=== PATIENT | female | born 2000 | race Caucasian/White ===

== ENCOUNTER 2023-07-01 12:50 | Inpatient (IN) | payer OTHER, SELFPAY ==
[2023-07-01] VITALS (7 sets, daily range): BP systolic 117–137; BP diastolic 68–85; PULSE 59–114; RESP 16–20; TEMP 35.5–36.2; O2SAT 97–100; BMI 25.9
--- NOTE | ~2023-07-01 | XR_ITS ---
EXAMINATION: XR ERCP DATE: 07/02/2023 11:47 INDICATION: Gallstones TECHNIQUE: 3 fluoroscopic spot fluoroscopic images of the right upper quadrant were obtained during e ndoscopic retrograde cholangiopancreatography (ERCP) performed by Dr. Pete Jara. Radiologist wa s not present for the imaging or procedure. The amount of fluoroscopy time used during this procedure was 1.4 minutes. COMPARISON: None. FINDINGS: Endoscopic cannulation and retrograde contrast injection into the common bile duct which demonstrates some amorphous decreased attenuation the distal duct which could represent either sludge or small ga llstones. Subsequent images demonstrate a balloon sweeping the mid to distal common bile duct. IMPRESSION: 1. Balloon sweeping of what appears to be a small amount of sludge or gallstones in the distal common bile duct. Please refer to the ERCP procedure note for additional details. Reviewed, dictated and finalized at location A. IMPRESSION: 1. Balloon sweeping of what appears to be a small amount of sludge or gallstone s in the distal common bile duct. Please refer to the ERCP procedure note for a dditional details.
--- NOTE | ~2023-07-01 | XR_ITS ---
XR chest 2V DATE: 07/10/2023 10:26 INDICATION: Shortness of breath TECHNIQUE: PA and lateral views COMPARISON: 07/08/2023 portable AP chest FINDINGS: There are bibasilar infiltrates and/or atelectasis, left greater than right. The left costo phrenic angle is obscured. Mild left pleural effusion is not excluded. No apparent right pleural effu damian. No pneumothorax. Heart size appears normal. Mediastinal silhouettes appear normal. Visualized skeletal structures are unremarkable. IMPRESSION: Persistent prominent bibasilar infiltrate and/or atelectasis, left greater than right and probable mild left pleural effusion; little interval change since 07/08/2023 Reviewed, dictated and finalized at location A. IMPRESSION: Persistent prominent bibasilar infiltrate and/or atelectasis, left greater than right and probable mild left pleural effusion; little interval jennifer nge since 07/08/2023
--- NOTE | ~2023-07-01 | XR_ITS ---
EXAMINATION: XR chest 1V portable DATE: 07/08/2023 15:22 INDICATION: Shortness of breath. TECHNIQUE: A single frontal view of the chest was obtained. COMPARISON: Chest view 07/05/2023, 07/01/2023 FINDINGS: There is a moderate-sized left pleural effusion. There are airspace opacities in the mid an d lower lung zones with a basilar predominance. No pneumothorax. The heart size is normal. IMPRESSION: 1. Worsened moderate-sized left pleural effusion. 2. Stable airspace opacities in the mid and lower lung zones with a basilar predominance, consistent with atelectasis versus pneumonia. Reviewed, dictated and finalized at location E. IMPRESSION: 1. Worsened moderate-sized left pleural effusion. 2. Stable airspace opacities in the mid and lower lung zones with a basilar pre dominance, consistent with atelectasis versus pneumonia.
--- NOTE | ~2023-07-01 | XR_ITS ---
EXAMINATION: XR chest 1V portable INDICATION: Hypoxia TECHNIQUE: Portable AP chest at 0554 hours COMPARISON: 07/01/2023 FINDINGS: The lung volumes are low. There are airspace opacities of the lung bases, left greater than right. No pleural effusion or pneumothorax. The cardiomediastinal silhouette is normal. IMPRESSION: 1. Bibasilar airspace opacities, left greater than right, consistent with atelectasis versus pneumoni a. Reviewed, dictated and finalized at location A. IMPRESSION: 1. Bibasilar airspace opacities, left greater than right, consistent with atele ctasis versus pneumonia.
--- NOTE | ~2023-07-01 | XR_ITS ---
EXAMINATION: XR chest 1V portable DATE: 07/01/2023 14:36 INDICATION: Chest pain TECHNIQUE: frontal view of the chest was obtained. COMPARISON: None FINDINGS: The lungs are clear with no focal airspace opacities, pulmonary edema, pleural effusion or pneumothor ax. The cardiomediastinal silhouette is normal. Minimal thoracic levocurvature. IMPRESSION: 1. No acute cardiopulmonary disease. Reviewed, dictated and finalized at location A.
--- NOTE | ~2023-07-01 | US_ITS ---
EXAMINATION: US abdomen limited DATE: 07/07/2023 15:42 INDICATION: Acute cholecystitis TECHNIQUE: Multiple grayscale and Doppler ultrasound images of the gallbladder were obtained in prepa ration for a planned percutaneous cholecystostomy tube placement. Given the interval change since the prior study for reasons as will be detailed below the planned cholecystostomy tube placement was def erred. COMPARISON: Ultrasound dated 07/01/2023 and ERCP dated 07/02/2023 FINDINGS/IMPRESSION: There are some residual wall thickening within the gallbladder likely related to acute cholecystitis but also due to improvement in the prior distention of the gallbladder which previously measured appr oximately 3.8 cm in maximal diameter, currently 1.8 cm maximal diameter. There is also been significa nt decrease in amount of hypoechoic sludge in the dependent portion of the gallbladder. This likely d ue to resolution of prior obstruction of the common bile duct post ERCP and sweeping of likely obstru cting stone from the common bile duct with subsequent significant improvement in the condition of the patient including significant improvement in both the elevated liver enzymes and elevated white bloo d cell count. Following discussion with the patient and Dr. Guevara it was agreed to defer the percutan eous cholecystostomy tube placement at this time. Would reconsider cholecystostomy tube placement whitley uld there be reversal of the current ongoing clinical improvement. Reviewed, dictated and finalized at location A.
--- NOTE | ~2023-07-01 | CT_ITS ---
EXAMINATION: CT diagnostic chest wo con DATE: 07/10/2023 15:09 INDICATION: left effusion vs consolidation TECHNIQUE: Computed tomography (CT) of the chest was performed with 100 mL Omnipaque-350 intravenous contrast. Automated exposure control and iterative reconstruction technique were employed. The dose-l ength product was 180.55 mGy-cm. COMPARISON: X-ray chest, same date. FINDINGS: CHEST: Thoracic aorta: No significant dilation or calcification. Lung parenchyma and airways: Discoid atelectasis and linear atelectasis/scar in the right lower lobe. Segmental left lower lobe consolidation. The airways are clear. Thoracic inlet, axillae and chest wall: No thyroid or soft tissue mass. No axillary lymphadenopathy. Mediastinum: No mass or lymphadenopathy. Normal residual thymic tissue. Heart and pericardium: Normal heart size. Small volume pericardial fluid. Coronary artery calcifications: Absent. Pleura: Small volume left pleural fluid collection. Upper abdomen: Considerable fat stranding surrounding the pancreas. Thoracic bones: No acute osseous finding in the chest. IMPRESSION: Trace pericardial effusion. Small left pleural effusion. Left basilar segmental atelectasis/consolida tion. Peripancreatic inflammatory change, concerning for pancreatitis, recommend CT of the abdomen and pelv is with contrast for further evaluation. Reviewed, dictated and finalized at location K. IMPRESSION: Trace pericardial effusion. Small left pleural effusion. Left basilar segmental atelectasis/consolidation. Peripancreatic inflammatory change, concerning for pancreatitis, recommend CT o f the abdomen and pelvis with contrast for further evaluation.
--- NOTE | ~2023-07-01 | US_ITS ---
EXAMINATION: US abdomen limited DATE: 07/01/2023 16:03 INDICATION: Right upper quadrant pain TECHNIQUE: Multiple grayscale and Doppler ultrasound images of the abdomen were obtained. COMPARISON: None available FINDINGS: The pancreas demonstrates mildly increased echogenicity of unclear significance or etiology . The liver is normal with normal echogenicity and echotexture. No surface nodularity. Normal hepatop etal flow in the main portal vein. There are stones and sludge in the gallbladder. There is mild gall bladder wall thickening. There is a small amount of free fluid in the right upper quadrant. The dilat ed common bile duct measures 10 mm. There was no sonographic Ramírez sign. IMPRESSION: 1. Dilated common bile duct, sludge and stones in the gallbladder, and mild gallbladder wall thickeni ng, and free fluid in the right upper quadrant. Findings could reflect distal common bile duct obstru ction and/or acute cholecystitis. Reviewed, dictated and finalized at location L. IMPRESSION: 1. Dilated common bile duct, sludge and stones in the gallbladder, and mild gal lbladder wall thickening, and free fluid in the right upper quadrant. Findings could reflect distal common bile duct obstruction and/or acute cholecystitis.
[2023-07-01 13:42] LABS: Alanine Aminotransferase 391 U/L (6-35); Alkaline Phosphatase 133 U/L (38-126); Anion Gap 8 mmol/L (8-16); Aspartate Amino Transferase 288 U/L (14-36); Bilirubin,Total 4.2 mg/dL (0.2-1.3); Blood Urea Nitrogen 8 mg/dL (7-17); Calcium 8.6 mg/dL (8.4-10.2); Carbon Dioxide 25 mmol/L (22-30); Chloride 107 mmol/L (98-107); Estimated CRCL calculation 107 ml/min; Estimated Glomerular Filt Rate > 60; Glucose 113 mg/dL (65-110); Sodium 140 mmol/L (137-145)
--- NOTE | 2023-07-01 14:02 | ED.CHESTPAIN ---
HPI - Chest Pain General Chief Complaint: Abdominal Pain Stated Complaint: chest pain Time Seen by Provider: 07/01/23 13:11 Source: patient Limitations: no limitations History of Present Illness HPI narrative: Patient is a 22-year-old female present to the emergency department complaining of chest pain. Patient states the pain is in her upper abdomen and points to her epigastrium, notes that has been present since March and feels like a tightness, nonradiating, it was originally coming and going but has since become more constant today. Patient notes that the pain did seem to become more frequent and more painful on Wednesday of this week and then today at around 11:30 AM she was in class when the pain got much more worse and constant and she had an episode of nonbloody nonbilious emesis. Patient has not noticed anything making her pain better nor worse. Patient has not associated the pain with food consumption. Patient denies anyone having some symptoms around her. Patient denies fever, diarrhea, constipation, dysuria, hematuria, urinary frequency, urinary urgency, history of kidney stones, vaginal discharge, shortness of breath, cough, numbness, weakness, recent injuries, recent illness. Related Data Allergies Allergy/AdvReac Type Severity Reaction Status Date / Time No Known Allergies Allergy Verified 07/01/23 15:24 Review of Systems Review of Systems: A 10 system review of systems was completed on the patient and is negative except for what is stated in the HPI. Nursing and ancillary documentation was reviewed. [facility] Past Medical History Medical History No pertinent past medical history Surgical History Surgical History No pertinent past surgical history Social History Social History Smoking status: Never smoker Alcohol intake: never Substance use: never Occupation/Education: student Comments At time of signature, I have reviewed and agree with nursing past medical, surgical, social and family history unless otherwise noted. Please see the nursing chart for further information. There is no relevant family history pertinent to the presenting complaint. Exam Const: General: no acute distress Orientation/consciousness: patient oriented x3 HENMT: Head: normal to inspection Mouth: Yes moist mucous membranes Throat: posterior oropharynx normal Eyes: Conjunctivae: conjunctival abnormality bilateral conjunctival icterus Pupils: Equal, round and reactive pupils present EOM: EOMs intact bilaterally Resp: Effort & Inspection: normal respiratory effort, not labored and not tachypneic Auscultation: clear to auscultation bilaterally Cardio: Jugular venous distension: no JVD Rate: regular rate Rhythm: regular rhythm Heart sounds: no murmurs Peripheral pulses: Peripheral pulses 2+ throughout GI: GI Palp: Yes Soft to palpation, Yes Tenderness to palpation present (GI) (RUQ and epigastric, both are mild), No Guarding due to palpation present (GI), No Rigid due to palpation and No Rebound tenderness present Other: Positive hernandez's sign. No Mcburneys point tenderness to palpation. No palpable hernias. Back/Spine/Pelvis: Back: no CVA tenderness Skin: General skin exam: jaundice Rashes: no rashes Wounds: no wounds Neuro: General: patient oriented x3, moves all extremities, no meningeal signs and no focal motor deficits Extrem: General: no pedal edema Psych: Affect: normal affect Course Vital Signs Vital signs: Vital Signs Pulse Rate 64 07/01/23 13:00 Respiratory Rate 19 07/01/23 13:00 Blood Pressure 124/68 07/01/23 13:00 Pulse Oximetry 100 07/01/23 13:00 Temperature 97.1 F L 07/01/23 13:04 Pulse Rate 77 07/01/23 17:00 Respiratory Rate 20 07/01/23 17:00 Blood Pressure 133/85 07/01/23 17:00 Pulse
--- NOTE | 2023-07-01 14:03 | ECG_ITS ---
Measurements Intervals [place] Rate: 61 P: 46 LA: 107 QRS: 81 QRSD: 88 T: 46 QT: 417 QTc: 422 Interpretive Statements SINUS RHYTHM WITH SHORT LA INTERVAL NORMAL ECG NO PREVIOUS ECG AVAILABLE FOR COMPARISON Electronically Signed On 07-01-2023 14:39:51 CDT by Russell Mcdaniel M.D.
[2023-07-01 14:21] LABS: Basophils Percent Auto 0.2 % (0.2-1.2); Hematocrit 42.7 % (37.0-47.0); Hemoglobin 14.2 g/dL (12.0-15.0); Immature Granulocyte Absolute 0.09 K/mm3 (0.00-0.031); Immature Granulocyte Percent A 0.4 % (0-0.5); Lymphocytes Absolute Auto 1.36 K/mm3 (0.9-3.2); Lymphocytes Percent Auto 6.7 % (18.3-44.2); Mean Corpuscular HGB Conc 33.3 g/dl (32-36); Mean Corpuscular Hemoglobin 29.6 pg (26-34); Mean Corpuscular Volume 89.1 fl (80-100); Mean Platelet Volume 10.6 fl (7.4-10.4); Monocytes Absolute Auto 1.4 K/mm3 (0.1-0.6); Neutrophils Absolute Auto 17.5 K/mm3 (1.3-6.7); Neutrophils Percent Auto 85.7 % (45.5-73.1); Platelet Count Result 266 k/mm3 (150-375); Red Blood Count 4.79 M/mm3 (4.2-5.4); Red Cell Distribution Width 12.7 % (11.5-14.5); White Blood Count 20.4 K/mm3 (4.5-10.0)
[2023-07-01 14:31] LABS: Magnesium 1.9 mg/dL (1.6-2.3)
[2023-07-01 14:43] LABS: Appearance Urine Cloudy (Clear); Bacteria Urine None Seen /hpf; Bilirubin Urine 3+ (Negative); Blood Urine 3+ (Negative); Color Urine Dark Yellow (Yellow); Glucose Urine UA Negative (Negative); Ketones Urine Trace mg/dL (Negative); Leukocyte Esterase Ur Trace LEU/UL (Negative); Need Manual Microscopic Reviewed; Nitrate Urine Negative (Negative); Non Pathogenic Casts >20; Protein Urine 1+ mg/dL (Negative); Specific Grav Ur 1.019 (1.001-1.035); Squamous Epithelial Cell Urine Moderate /hpf (Few); Urobilinogen Urine 0.2 mg/dL (<2.0); WBC Urine 0-5 /hpf
[2023-07-01 14:44] LABS: Troponin I < 0.012 ng/mL (0.000-0.034)
[2023-07-01 14:45] LABS: Magnesium 1.9 mg/dL (1.6-2.3); Troponin I < 0.012 ng/mL (0.000-0.034)
[2023-07-01 14:55] LABS: Add Urine Microscopic? YES
[2023-07-01] MEDS: ONDANSETRON INJ 4 MG/2 ML VIAL IV PUSH ×2 (15:24→23:17)
[2023-07-01] MEDS: MORPHINE SULFATE (*CRX) 4 MG/ML INJ IV PUSH (15:24)
[2023-07-01 15:31] LABS: Lipase > 40000 U/L (23-300)
[2023-07-01 16:16] LABS: Acetaminophen < 10 ug/mL (10-30)
[2023-07-01 16:18] LABS: Prothrombin Time 13.6 Seconds (11.1-14.7)
[2023-07-01 16:19] LABS: Partial Thromboplastin Time 27.1 SECONDS (22.3-36.8)
--- NOTE | 2023-07-01 16:50 | PM.CNGS ---
Assessment and Plan Assessment and plan (1) Acute biliary pancreatitis: Code(s): K85.10 - Biliary acute pancreatitis without necrosis or infection Status: Acute Assessment and Plan: Patient presents with acute biliary pancreatitis. Right upper quadrant ultrasound shows a dilated common bile duct with gallstones and sludge noted with some mild gallbladder inflammation. Lipase greater than 40,000. LFTs are elevated with hyperbilirubinemia concerning for choledocholithiasis. Recommend to continue medical management with IV fluids, bowel rest, and IV analgesics. Also recommend GI consultation to evaluate for possible need for an ERCP. The patient will need an eventual interval cholecystectomy after further evaluation of the common duct stone and once her pancreatitis has been adequately treated. Repeat labs tomorrow morning. We will continue to follow along. (2) Choledocholithiasis with acute cholecystitis: Code(s): K80.42 - Calculus of bile duct with acute cholecystitis without obstruction Status: Acute Assessment and Plan: See plan above. (3) Transaminitis: Code(s): R74.01 - Elevation of levels of liver transaminase levels Status: Acute Assessment and Plan: LFTs elevated with a total bilirubin of 4.2. Recommend GI consultation. Possible common bile duct stone. Repeat labs tomorrow. Plan I have discussed the patient's case and plan of care with Dr. Stacy. Thank you for allowing us to see the patient in consultation and we will continue to follow along with you. History of Present Illness Consult details Consult date: 07/01/23 Reason for consult: other (Acute biliary pancreatitis, cholelithiasis with possible cholecystitis) Requesting physician: Krunal Landaverde DO Narrative: This is a 22-year-old woman who reports having 1-2 episodes of epigastric abdominal pain a month since March of 2023. These were mild episodes and she has not been seen for this issue. She began to have more frequent epigastric and left upper quadrant abdominal pain 4 days ago. She cannot recall if the pain was associated with eating, but the pain would wax and wane. Her pain got better yesterday and she went to bed with no pain. She woke up this morning feeling in her normal state of health and had frosted flakes cereal with almond milk. Around 11:00 a.m., her abdominal pain returned and was more severe. Again in the epigastric area radiating up to her chest and to the left upper quadrant. She felt her pain was more focally in the left upper quadrant with this episode. She began having nausea and multiple episodes of vomiting. She was vomiting in the bathroom at school in some classmates found her and brought her into the ER for evaluation. Labs showed a white blood cell count [id number], lipase greater than 40,000, total bilirubin 4.2, AST 288, ALT 391, alk-phos 133, negative troponin x2. Chest x-ray was negative. Right upper quadrant abdominal ultrasound showed a dilated common duct of 10 mm, sludge in stones in the gallbladder, and mild gallbladder wall thickening and free fluid in the right upper quadrant. Could suggest common bile duct obstruction and/or acute cholecystitis. Our service was contacted by the ED physician. She is now seen in the ER. She is still having a significant amount of left upper quadrant abdominal pain at this time. With further questioning, she does endorse acholic stools and dark orange colored urine for the past 2-3 days. She denies alcohol use. She denies a history of pancreatitis.. No previous abdominal surgeries. Review of Systems Review of Systems: All systems reviewed & are unremarkable except as noted in HPI and below Constitutional: Constitutional: Reports no additional constitutional complaints, Denies chills, Denies fatigue and Denies fever(s) Eyes: Eyes: Reports no additional eye complaints ENT: Reports system reviewed and no additional complaints, except as documented
[2023-07-01 17:37] LABS: Hepatitis B Surface Antigen Negative (Negative)
[2023-07-01 17:42] LABS: HAV RESULT Negative (Negative); Hepatitis B Core IgM Result Negative (Negative)
[2023-07-01 17:54] LABS: Hepatitis C Virus Antibody Negative (Negative)
[2023-07-01] MEDS: SODIUM CHLORIDE 0.9% IV 1,000 ML 125 ML IV CONT (19:27)
--- NOTE | 2023-07-01 20:04 | PM.IMHP ---
H&P: HPI History of Present Illness Date/Time: 07/01/23 20:04 Chief Complaint: Abdominal pain, nausea vomiting Narrative: Patient is a 22-year-old female with no past medical history presents to the ED complaints of nausea/vomiting/abdominal pain for last 5 days. Patient has no history of symptoms this severe before. No family history abdominal pathologies. Patient has not had gallbladder attacks in the past. She denies any specific exacerbating or alleviating factors. In the ED: Patient on his leukocytosis 20,000, stable vitals, Tbili 4.2 elevated, LFTs elevated AST 288, ALT 391, alk phos 133, lipase >40k. Patient abdominal ultrasound shows dilated common bile duct and sludge and stones. With findings of acute cholecystitis and concern for common bile duct obstruction patient will be admitted for further evaluation and treatment. General surgeon consult for cholecystectomy. GI consult for possible ERCP. Patient given Rocephin and Flagyl, started IVF. Review of Systems Review of Systems: Constitutional: No Fever, No Chills, No Night Sweats, No Fatigue, No Malaise ENT/Mouth: No Hearing Changes, No Ear Pain, No Nasal Congestion, No Sinus Pain, No Hoarseness, No sore throat, No Rhinorrhea, No Swallowing Difficulty Eyes: No Eye Pain, No Redness, No Vision Changes Cardiovascular: No Chest Pain, No Palpitations, No Dyspnea on Exertion, No Orthopnea, No Claudication, No Edema Respiratory: No Cough, No Sputum, No Wheezing, No Shortness of Breath Gastrointestinal: Endorses nausea and vomiting and abdominal pain prominently in epigastric region Genitourinary: No Dysuria, No Urinary Frequency, No Hematuria, No Urinary Incontinence, No Urgency Musculoskeletal: No Arthralgias, No Myalgias, No Joint Swelling, No Joint Stiffness, No Back Pain Skin: No Skin Lesions, No Pruritis, No Hair Changes Neuro: No Weakness, No Numbness, No Paresthesias, No Loss of Consciousness, No Syncope, No Dizziness, No Headache Psych: No Anxiety/Panic, No Depression, No Insomnia Heme: No Bruising, No Bleeding Lymph: No Adenopathy Endocrine: No Polyuria, No Polydipsia, No Temperature Intolerance PMFSH Past Medical History Medical History No pertinent past medical history Surgical History Surgical History No pertinent past surgical history Social History Social History Smoking status: Never smoker Alcohol intake: never Substance use: never Lack of Transportation: No Lack of Food: Never True Current Housing: I Have Housing Concerned About Future Housing: No Difficulty Paying Gas/Electric Bills: No Difficulty Paying for Meds: No Currently Unemployed: No Education: Associate Degree Difficulty w/ Childcare or Family Care: No Occupation/Education: student Spiritual care concerns: No Meds Home Medications and Allergies Home Medications Medication Instructions Recorded Confirmed Type No Home Medications 07/01/23 07/01/23 History Allergies Allergy/AdvReac Type Severity Reaction Status Date / Time lactose AdvReac Gastrointestinal Verified 07/01/23 18:54 Upset Vital Signs Vital Signs - 24 hr 07/01/23 13:04 07/01/23 17:00 07/01/23 16:00 Temperature 36.2 C L Pulse Rate 78 77 59 L Respiratory Rate 16 20 20 Blood Pressure 129/68 133/85 127/75 Pulse Oximetry 100 97 99 Oxygen Delivery Room Air 07/01/23 15:15 07/01/23 14:00 07/01/23 13:00 Temperature Pulse Rate 73 74 64 Respiratory Rate 16 16 19 Blood Pressure 127/80 137/72 124/68 Pulse Oximetry 98 100 100 Oxygen Delivery Exam Narrative: - GENERAL: Pleasant woman in no acute distress. Well-nourished. - EYES: EOMI. Anicteric. - HENT: Moist mucous membranes. - LUNGS: Clear to auscultation bilaterally, no wheezing, rhonchi, or rales. - CARDIOVA
[2023-07-01] MEDS: HYDROmorphone HCL INJ (*CRX) 1 MG/ML SYR 0.5 MG IV PUSH ×2 (20:28→23:45)
[2023-07-01] MEDS: cefTRIAXone 2 GM/NS 100 ML 2 GM/100 ML BAG IVPB (20:31)
[2023-07-01] MEDS: metroNIDAZOLE 500 MG/ISO 100ML 500 MG/100 ML BAG 100 MG IVPB (21:53)
[2023-07-02] VITALS (17 sets, daily range): BP systolic 97–142; BP diastolic 52–95; PULSE 113–174; RESP 16–31; TEMP 35.5–36.8; O2SAT 95–100
[2023-07-02] MEDS: HYDROmorphone HCL INJ (*CRX) 1 MG/ML SYR 0.5 MG IV PUSH ×2 (03:20→06:12)
[2023-07-02] MEDS: metroNIDAZOLE 500 MG/ISO 100ML 500 MG/100 ML BAG 100 MG IVPB ×4 (03:20→21:38)
--- NOTE | 2023-07-02 05:57 | ECG_ITS ---
Measurements Intervals [place] Rate: 133 P: 52 [place]: 108 QRS: 81 QRSD: 89 T: 19 QT: 288 QTc: 429 Interpretive Statements SINUS TACHYCARDIA WITH SHORT TX INTERVAL ABNORMAL ECG COMPARED TO ECG 07/01/2023 14:30:28 SINUS TACHYCARDIA NOW PRESENT Electronically Signed On 07-02-2023 6:54:16 CDT by Uzair Estevez D.O.
[2023-07-02] MEDS: SODIUM CHLORIDE 0.9% IV 1,000 ML 125 ML IV CONT (06:12)
[2023-07-02 06:33] LABS: Hematocrit 52.7 % (37.0-47.0); Mean Corpuscular HGB Conc 34.2 g/dl (32-36); Mean Corpuscular Hemoglobin 29.5 pg (26-34); Mean Corpuscular Volume 86.4 fl (80-100); Mean Platelet Volume 10.8 fl (7.4-10.4); Platelet Count Result 344 k/mm3 (150-375); White Blood Count 23.6 K/mm3 (4.5-10.0)
[2023-07-02 06:50] LABS: Albumin Level 3.7 g/dL (3.5-5.1); Anion Gap 13 mmol/L (8-16); Aspartate Amino Transferase 194 U/L (14-36); Blood Urea Nitrogen 18 mg/dL (7-17); Calcium 8.8 mg/dL (8.4-10.2); Carbon Dioxide 16 mmol/L (22-30); Chloride 108 mmol/L (98-107); Estimated CRCL calculation 77 ml/min; Estimated Glomerular Filt Rate > 60; Glucose 131 mg/dL (65-110); Magnesium 1.8 mg/dL (1.6-2.3); Potassium 5.2 mmol/L (3.4-5.0); Sodium 137 mmol/L (137-145)
[2023-07-02 06:51] LABS: Alkaline Phosphatase 140 U/L (38-126)
[2023-07-02 06:53] LABS: Alanine Aminotransferase 333 U/L (6-35)
[2023-07-02 07:51] LABS: Band Neutrophils Percent 19 % (0-6); Lymphocytes Absolute Manual 0.47 K/mm3 (1.1-4.5); Monocytes Absolute Manual 0.94 K/mm3 (0.1-0.90); Monocytes Percent Manual 4 % (3-9); Neutrophils Absolute Manual 22.18 K/mm3 (1.7-7.2); Neutrophils Percent Manual 75 % (46-73); Platelet Estimate Adequate (Adequate); Schistocytes None Seen (NORMAL); Total Cells Counted 100
[2023-07-02 08:03] LABS: Lipase 9919 U/L (23-300)
[2023-07-02] MEDS: SODIUM CHLORIDE 0.9% IV 1,000 ML 250 ML IV CONT ×2 (08:53→13:46)
--- NOTE | 2023-07-02 09:29 | PM.PNGS ---
Progress Note: A&P Assessment and Plan (1) Acute biliary pancreatitis: Code(s): K85.10 - Biliary acute pancreatitis without necrosis or infection Status: Acute Assessment and Plan: Severe pancreatitis with patient still having considerable amounts of pain. She has evidence of biliary obstruction with abnormal of TS and bilirubin of 4. Will change her pain medication for better relief. Continue normal saline fluid resuscitation. Will eventually need cholecystectomy. (2) Cholelithiasis with choledocholithiasis: Code(s): K80.70 - Calculus of gallbladder and bile duct without cholecystitis without obstruction Status: Acute Assessment and Plan: Dr. Freemna will be seeing patient for GI consultation. Seems likely patient may have a common bile duct stone as her lipase and pain are persistent and she does have an elevated bilirubin and elevated LFTs. Keep NPO for possible ERCP today. Patient will eventually need cholecystectomy as this is the source of the gallstones. Do not see evidence of cholecystitis. Subjective Subjective Date/Time Seen: 07/02/23 09:29 Patient reports: still having pain (Not as bad as yesterday but still very uncomfortable), no flatus, no bowel movement and afebrile Review of Systems Review of Systems: All systems reviewed & are unremarkable except as noted in HPI and below (HPI and those items noted below) Constitutional: Constitutional: Denies chills and Denies fever(s) Cardiovascular: Cardiovascular: Denies chest pain, Denies diaphoresis, Denies dyspnea and Denies paroxysmal nocturnal dyspnea Respiratory: Respiratory: Denies chest congestion, Denies cough and Denies dyspnea Integumentary/Breasts: Skin/Breast: Denies lesions and Denies rash Exam Const: General: cooperative, no acute distress, alert, awake, uncomfortable and well nourished Nutritional Appearance: average body habitus Orientation/consciousness: patient oriented x3 GI: Inspection: normal to inspection, non-distended, scaphoid, no scars and other (Umbilical piercing) GI Palp: Yes abdominal tenderness (Diffusely tender with guarding), Yes Firmness to palpation present (GI), Yes Guarding due to palpation present (GI), No Hernia present and No Palpable mass present Auscultation: absent bowel sounds Neuro: General: patient oriented x3 and no focal motor deficits Extrem: General: no calf tenderness and no edema Psych: Affect: normal affect Insight: Good insight present (Psych) Judgement: Good judgement present (Psych) Objective Data Vital Signs Vital Signs: Vital Signs - 24 hr 07/01/23 13:04 07/01/23 17:00 07/01/23 16:00 Temperature 36.2 C L Pulse Rate 78 77 59 L Respiratory Rate 16 20 20 Blood Pressure 129/68 133/85 127/75 Pulse Oximetry 100 97 99 Oxygen Delivery Room Air 07/01/23 15:15 07/01/23 14:00 07/01/23 13:00 Temperature Pulse Rate 73 74 64 Respiratory Rate 16 16 19 Blood Pressure 127/80 137/72 124/68 Pulse Oximetry 98 100 100 Oxygen Delivery 07/01/23 21:00 07/02/23 06:00 07/02/23 08:00 Temperature 35.5 C L 35.5 C L Pulse Rate 114 H 134 H Respiratory Rate 16 18 Blood Pressure 117/76 114/71 Pulse Oximetry 98 97 Oxygen Delivery Room Air 07/02/23 08:41 Temperature Pulse Rate 154 H Respiratory Rate Blood Pressure Pulse Oximetry 95 Oxygen Delivery Room Air Intake/Output Intake/Output: Intake & Output 06/29/23 06/30/23 07/01/23 07/02/23 23:59 23:59 23:59 23:59 Intake Total 200 2100 Balance 200 2100 Meds/Results Medications: Active Medications Generic Name Dose Route Start Last Admin Trade Name Freq PRN Reason Stop Dose Admin Hydromorphone HCl 0.5 mg 07/01/23 16:48 07/02/23 03:20 Hydromorphone Hcl Inj (*Crx) 1 Mg/Ml Syr IV PUSH 0.5 mg Q4H PRN Administration Pain Rated 7-10 Sodium Chloride 1,000 mls @ 100 mls/hr 07/01/23 16:50 07/02/23 08:53 Normal Saline Iv IV CONT 250 mls/hr .Q10H SACHI
[2023-07-02] MEDS: fentaNYL CITRATE INJ (*CRX) 100 MCG/2 ML VIAL 50 MCG IV PUSH (10:12)
--- NOTE | 2023-07-02 10:19 | PM.IMPN ---
Progress Note: A&P Assessment and Plan (1) Acute biliary pancreatitis: Code(s): K85.10 - Biliary acute pancreatitis without necrosis or infection Status: Acute Assessment and Plan: Keep NPO -maintenance IV fluids while NPO -pain control: P.r.n. Dilaudid -antiemetic Zofran (2) Choledocholithiasis with acute cholecystitis: Code(s): K80.42 - Calculus of bile duct with acute cholecystitis without obstruction Status: Deleted Assessment and Plan: -elevated LFTs concerning biliary obstruction, elevated lipase concerning for pancreatic obstruction -GI consult: Dr. Freeman for ERCP with findings concerning for choledocholithiasis -general surgery consult: For cholecystectomy considering acute cholecystitis -antibiotics: Continue Rocephin, Flagyl Subjective Date/time seen: 07/02/23 10:19 Interval history: Reports significant abdominal pain Review of Systems Review of Systems: Constitutional: No Fever, No Chills, No Night Sweats, No Fatigue, No Malaise ENT/Mouth: No Hearing Changes, No Ear Pain, No Nasal Congestion, No Sinus Pain, No Hoarseness, No sore throat, No Rhinorrhea, No Swallowing Difficulty Eyes: No Eye Pain, No Redness, No Vision Changes Cardiovascular: No Chest Pain, No Palpitations, No Dyspnea on Exertion, No Orthopnea, No Claudication, No Edema Respiratory: No Cough, No Sputum, No Wheezing, No Shortness of Breath Gastrointestinal: Endorses nausea and vomiting and abdominal pain prominently in epigastric region Genitourinary: No Dysuria, No Urinary Frequency, No Hematuria, No Urinary Incontinence, No Urgency Musculoskeletal: No Arthralgias, No Myalgias, No Joint Swelling, No Joint Stiffness, No Back Pain Skin: No Skin Lesions, No Pruritis, No Hair Changes Neuro: No Weakness, No Numbness, No Paresthesias, No Loss of Consciousness, No Syncope, No Dizziness, No Headache Psych: No Anxiety/Panic, No Depression, No Insomnia Heme: No Bruising, No Bleeding Lymph: No Adenopathy Endocrine: No Polyuria, No Polydipsia, No Temperature Intolerance Exam Narrative: - GENERAL: Pleasant woman in no acute distress. Well-nourished. - EYES: EOMI. Anicteric. - HENT: Moist mucous membranes. - LUNGS: Clear to auscultation bilaterally, no wheezing, rhonchi, or rales. - CARDIOVASCULAR: Regular rate and rhythm. No murmur. No JVD. - ABDOMEN: Soft, non-tender and non-distended. No palpable masses. - EXTREMITIES: No edema. Peripheral pulses 2+. Non-tender. - NEUROLOGIC: No focal neurological deficits. CN II-XII grossly intact. - PSYCHIATRIC: Awake, Alert and oriented x 3. Appropriate mood and affect. - SKIN: No rashes or lesions. Warm. - LYMPH: No cervical lymphadenopathy. Objective Data Vital Signs Vital Signs: Vital Signs - 24 hr 07/01/23 13:04 07/01/23 17:00 07/01/23 16:00 Temperature 97.1 F L Pulse Rate 78 77 59 L Respiratory Rate 16 20 20 Blood Pressure 129/68 133/85 127/75 Pulse Oximetry 100 97 99 Oxygen Delivery Room Air 07/01/23 15:15 07/01/23 14:00 07/01/23 13:00 Temperature Pulse Rate 73 74 64 Respiratory Rate 16 16 19 Blood Pressure 127/80 137/72 124/68 Pulse Oximetry 98 100 100 Oxygen Delivery 07/01/23 21:00 07/02/23 06:00 07/02/23 08:00 Temperature 96 F L 96 F L Pulse Rate 114 H 134 H Respiratory Rate 16 18 Blood Pressure 117/76 114/71 Pulse Oximetry 98 97 Oxygen Delivery Room Air 07/02/23 08:41 Temperature Pulse Rate 154 H Respiratory Rate Blood Pressure Pulse Oximetry 95 Oxygen Delivery Room Air Intake/Output Intake/Output: Intake & Output 06/29/23 06/30/23 07/01/23 07/02/23 23:59 23:59 23:59 23:59 Intake Total 200 / 200 2099 Balance 200 / 200 2099 Meds/Results Medications: Active Medications Generic Name Dose Route Start Last Admin Trade Name Freq PRN Reason Stop Dose Admin Sodium Chloride 1,000 mls @ 100 mls/hr 07/01/23 16:50 07/02/23 08:53 Normal Saline Iv IV CONT 250 m
[2023-07-02] MEDS: LACTATED RINGERS 1,000 ML 150 ML IV CONT ×2 (10:27→11:33)
--- NOTE | 2023-07-02 10:58 | WPDANESEPPF ---
Anes - Initial Pre Proc Eval Procedure: Operation Date: 07/02/23 11:30 Proposed Procedures p Endoscopic Retro Cholangiopancreatogram - Juwan Walsh MD Date/Time: 07/02/23 10:58 Surgeon: Gerson Clarke MD Pre Op Diagnosis: Choledocholithiasis Patient Data Age: 22 Gender: F Height: 1.7 m Weight: 75 kg Last Vital Signs Temp 96.6 F L 07/02/23 10:05 Pulse 155 H 07/02/23 10:05 Resp 18 07/02/23 10:05 BP 97/60 L 07/02/23 10:05 Pulse Ox 98 07/02/23 10:05 O2 Del Method Room Air 07/02/23 10:05 Allergies Allergy/AdvReac Type Severity Reaction Status Date / Time lactose AdvReac Gastrointestinal Verified 07/02/23 10:14 Upset Home Medications Medication Instructions Recorded Confirmed Type No Home Medications 07/01/23 07/01/23 History Laboratory Tests 07/01/23 07/01/23 07/01/23 13:24 14:12 14:20 WBC 20.4 H K/mm3 (4.5-10.0) RBC 4.79 M/mm3 (4.2-5.4) Hgb 14.2 g/dL (12.0-15.0) Hct 42.7 % (37.0-47.0) MCV 89.1 fl (80-100) MCH 29.6 pg (26-34) MCHC 33.3 g/dl (32-36) RDW 12.7 % (11.5-14.5) Plt Count 266 k/mm3 (150-375) MPV 10.6 H fl (7.4-10.4) Immature Gran % (Auto) 0.4 % (0-0.5) Neut % (Auto) 85.7 H % (45.5-73.1) Lymph % (Auto) 6.7 L % (18.3-44.2) [place] % (Auto) 7.0 % (2.6-8.5) Eos % (Auto) 0.0 % (0-4.4) Baso % (Auto) 0.2 % (0.2-1.2) Lymph # (Auto) 1.36 K/mm3 (0.9-3.2) [place] # (Auto) 1.4 H K/mm3 (0.1-0.6) Eos # (Auto) 0.0 K/mm3 (0-0.3) Baso # (Auto) 0.0 K/mm3 (0.0-0.1) Abs Immat Gran (auto) 0.09 H K/mm3 (0.00-0.031) Absolute Neuts (auto) 17.5 H K/mm3 (1.3-6.7) Absolute Nucleated RBC 0.0 K/mm3 (0.0-0.012) Total Counted Neutrophils % (Manual) Band Neutrophils % Lymphocytes % (Manual) Monocytes % (Manual) Nucleated RBC % 0.0 % (0.0-0.2) Abs Neuts (Manual) Abs Lymphs (Manual) Abs Monocytes (Manual) Platelet Estimate Schistocytes PT INR APTT Sodium 140 mmol/L (137-145) Potassium 4.0 mmol/L (3.4-5.0) Chloride 107 mmol/L (98-107) Carbon Dioxide 25 mmol/L (22-30) Anion Gap 8 mmol/L (8-16) BUN 8 mg/dL (7-17) Creatinine 0.70 mg/dL (0.7-1.0) Estim Creat Clear Calc 107 ml/min Estimated GFR > 60 (59 - ) Glucose 113 H mg/dL (65-110) Calcium 8.6 mg/dL (8.4-10.2) Magnesium 1.9 mg/dL 1.9 mg/dL (1.6-2.3) (1.6-2.3) Total Bilirubin 4.2 H mg/dL (0.2-1.3) AST 288 H U/L (14-36) ALT 391 H U/L (6-35) Alkaline Phosphatase 133 H U/L (38-126) Troponin I < 0.012 ng/mL < 0.012 ng/mL (0.000-0.034) (0.000-0.034) Total Protein 7.0 g/dL (6.3-8.2) Albumin 4.0 g/dL (3.5-5.1) Lipase > 94617 H U/L (23-300) Urine Color Dark yellow (Yellow) Urine Appearance Cloudy H (Clear) Urine pH 5.0 (5.0-9.0) Ur Specific [place] 1.019 (1.001-1.035) Urine Protein 1+ H mg/dL (Negative) Urine Glucose (UA) Negative mg/dL (Negative) Urine Ketones Trace H mg/dL (Negative) Ur Blood (Man) 3+ H (Negative) Urine Nitrate Negative (Negative) Urine Bilirubin 3+ H (Negative) Urine Urobilinogen 0.2 mg/dL (<2.0) Add Ur Microanalysis Reviewed Leukocyte Esterase Rfl Trace H FAUSTINO/UL (Negative) Urine RBC 11-20 H /hpf (0-2) Urine WBC 0-5 /hpf Ur Squamous Epith Cells Moderate /hpf
--- NOTE | 2023-07-02 11:05 | WPDGICN ---
Assessment and Plan Assessment and plan (1) Acute biliary pancreatitis: Code(s): K85.10 - Biliary acute pancreatitis without necrosis or infection Status: Acute Assessment and Plan: here with pancreatitis, noted dilated bile duct 10mm with cholecystitis, she is quite symptomatic and also pancreatitis, tachycardic, hemoconcentrated and worsening leukocytosis- meets criteria for SIRS started on abx will proceed with urgent ERCP to assess biliary system ? sludge, stones surgery also on board, will need lap janet (2) Cholelithiasis with choledocholithiasis: Code(s): K80.70 - Calculus of gallbladder and bile duct without cholecystitis without obstruction Status: Acute Assessment and Plan: antibiotics, ercp now (3) SIRS (systemic inflammatory response syndrome): Code(s): R65.10 - Systemic inflammatory response syndrome (SIRS) of non-infectious origin without acute organ dysfunction Status: Acute Assessment and Plan: on abx and medical support (4) Elevated liver enzymes: Code(s): R74.8 - Abnormal levels of other serum enzymes Status: Acute Assessment and Plan: biliary related, abx surgery on board monitor (5) Leukocytosis: Code(s): D72.829 - Elevated white blood cell count, unspecified Status: Inactive Assessment and Plan: abx monitor (6) Abdominal pain: Code(s): R10.9 - Unspecified abdominal pain Status: Inactive (7) Nausea and vomiting in adult: Code(s): R11.2 - Nausea with vomiting, unspecified Status: Acute Assessment and Plan: npo (8) Dehydration: Code(s): E86.0 - Dehydration Status: Acute GI Consult Note Consult date/time: 07/02/23 11:05 Reason for consult: cholecystitis, elevated liver enzymes, abdominal pain HPI: Juanita Sierra is a 22 year old female with no major medical problems who came to hospital yesterday with severe upper abdominal pain. She has been having 1-2 episodes of epigastric abdominal pain a month since March of 2023, about 4 days ago more frequent epigastric and right upper quadrant abdominal pain but yesterday more severe, also nausea and vomiting. She never had pancreatitis, denies alcohol use.? Labs showed a white blood cell count 00087, lipase greater than 40,000, total bilirubin 4.2, AST 288, ALT 391, alk-phos 133, negative troponin x2.? Chest x-ray was negative.? Right upper quadrant abdominal ultrasound showed a dilated common duct of 10 mm, sludge in stones in the gallbladder, and mild gallbladder wall thickening and free fluid in the right upper quadrant.? Could suggest common bile duct obstruction and/or acute cholecystitis.?She is tachycardic, wbc 23k, hgb 18 (up from 14) and feeling sick, still with severe pain, started on antibiotics, denies previous surgeries. Review of Systems Constitutional: Constitutional: Reports weakness Eyes: Eyes: Denies blurry vision ENT: Reports Normal hearing present Cardiovascular: Cardiovascular: Reports chest pain Respiratory: Respiratory: Denies cough Gastrointestinal: Gastrointestinal: Reports abdominal pain, Reports nausea and Reports vomiting Genitourinary: Genitourinary: Denies dysuria Musculoskeletal: Musculoskeletal: Denies neck pain Integumentary/Breasts: Skin/Breast: Denies rash Neurologic: Denies Abnormal speech present Psychiatric: Psychiatric: Denies behavioral changes [facility] Past Medical History Medical History (Updated 07/02/23 @ 11:11 by Juwan Walsh MD) Dehydration Elevated liver enzymes Nausea and vomiting in adult No pertinent past medical history SIRS (systemic inflammatory response syndrome) Surgical History Surgical History No pertinent past surgical history Social History Social History Smoking status: Never smoker Alcohol intake: nev
[2023-07-02] MEDS: INDOMETHACIN 50 MG SUPP.RECT RECTAL (11:24)
[2023-07-02] MEDS: MORPHINE SULFATE (*CRX) 4 MG/ML INJ IV PUSH ×2 (14:30→23:41)
[2023-07-02] MEDS: MORPHINE SULFATE (*CRX) 2 MG/ML INJ IV PUSH ×2 (16:30→18:50)
[2023-07-02] MEDS: IBUPROFEN IV 800 MG/200 ML 800 MG/200 ML BAG 400 MG IVPB (20:01)
[2023-07-02] MEDS: SENNA/DOCUSATE SODIUM TABLET 2 TAB PO (20:30)
[2023-07-02] MEDS: cefTRIAXone 2 GM/NS 100 ML 2 GM/100 ML BAG IVPB (20:46)
[2023-07-02] MEDS: ONDANSETRON INJ 4 MG/2 ML VIAL IV PUSH (23:41)
[2023-07-03] VITALS (9 sets, daily range): BP systolic 120–134; BP diastolic 59–95; PULSE 70–144; RESP 15–18; TEMP 36.3–36.9; O2SAT 96–98
[2023-07-03] MEDS: SODIUM CHLORIDE 0.9% IV 1,000 ML 100 ML IV CONT (03:33)
[2023-07-03] MEDS: metroNIDAZOLE 500 MG/ISO 100ML 500 MG/100 ML BAG 100 MG IVPB ×4 (03:33→22:22)
[2023-07-03] MEDS: IBUPROFEN IV 800 MG/200 ML 800 MG/200 ML BAG 400 MG IVPB ×3 (04:39→17:34)
[2023-07-03 05:19] LABS: Hematocrit 41.8 % (37.0-47.0); Hemoglobin 13.9 g/dL (12.0-15.0); Mean Corpuscular HGB Conc 33.3 g/dl (32-36); Mean Corpuscular Hemoglobin 29.5 pg (26-34); Mean Corpuscular Volume 88.7 fl (80-100); Mean Platelet Volume 11.2 fl (7.4-10.4); Platelet Count Result 200 k/mm3 (150-375); Red Blood Count 4.71 M/mm3 (4.2-5.4); Red Cell Distribution Width 13.3 % (11.5-14.5); White Blood Count 19.5 K/mm3 (4.5-10.0)
[2023-07-03 05:25] LABS: Alanine Aminotransferase 172 U/L (6-35); Alkaline Phosphatase 95 U/L (38-126); Anion Gap 9 mmol/L (8-16); Aspartate Amino Transferase 95 U/L (14-36); Bilirubin,Total 1.6 mg/dL (0.2-1.3); Blood Urea Nitrogen 21 mg/dL (7-17); Calcium 8.1 mg/dL (8.4-10.2); Carbon Dioxide 24 mmol/L (22-30); Chloride 105 mmol/L (98-107); Estimated CRCL calculation 77 ml/min; Estimated Glomerular Filt Rate > 60; Glucose 107 mg/dL (65-110); Potassium 4.5 mmol/L (3.4-5.0); Sodium 138 mmol/L (137-145)
[2023-07-03 05:55] LABS: Lipase 8251 U/L (23-300)
--- NOTE | 2023-07-03 08:08 | WPDGIPROGNO ---
Progress Note: A&P Assessment and Plan (1) Cholangitis: Code(s): K83.09 - Other cholangitis Status: Acute Assessment and Plan: treated successfully with ercp, sphincterotomy and balloon sweep bili is coming down and she is feeling better (2) SIRS (systemic inflammatory response syndrome): Code(s): R65.10 - Systemic inflammatory response syndrome (SIRS) of non-infectious origin without acute organ dysfunction Status: Acute Assessment and Plan: on abx, better (3) Cholelithiasis with choledocholithiasis: Code(s): K80.70 - Calculus of gallbladder and bile duct without cholecystitis without obstruction Status: Acute Assessment and Plan: s/p ercp surgery on board (4) Acute biliary pancreatitis: Code(s): K85.10 - Biliary acute pancreatitis without necrosis or infection Status: Acute Assessment and Plan: npo abx and fluids (5) Elevated liver enzymes: Code(s): R74.8 - Abnormal levels of other serum enzymes Status: Acute Assessment and Plan: monitor trending down after ercp Subjective Date/time seen: 07/03/23 08:08 Interval history: ercp yesterday with evidence of cholangitis and large amount of debris/sludge removed successfully still with abd pain but feeling better this morning Review of Systems Review of Systems: All systems reviewed & are unremarkable except as noted in HPI and below Exam Const: General: cooperative, alert, awake and well nourished Nutritional Appearance: average body habitus Orientation/consciousness: patient oriented x3 HENMT: Face/Nose/Sinus: Normal nares present Eyes: General: appearance normal, both eyes and all related structures Neck: Neck: supple Resp: Effort & Inspection: normal respiratory effort Cardio: Other: still tachycardic ~ 130 GI: Inspection: normal to inspection GI Palp: Yes abdominal tenderness (Diffusely tender with guarding), Yes Tenderness to palpation present (GI), Yes Guarding due to palpation present (GI) and No Hernia present Skin: General skin exam: no rashes or lesions noted Neuro: General: patient oriented x3 and no focal motor deficits Extrem: General: no calf tenderness and no edema Psych: Affect: normal affect Insight: Good insight present (Psych) Judgement: Good judgement present (Psych) Other: uncomfortable Objective Data Vital Signs Vital Signs: Vital Signs - 24 hr 07/02/23 08:41 07/02/23 10:05 07/02/23 11:44 Temperature 96.6 F L 97.3 F L Pulse Rate 154 H 155 H 125 H Respiratory Rate 18 16 Blood Pressure 97/60 L 101/52 L Pulse Oximetry 95 98 100 Oxygen Delivery Room Air Room Air Simple Face Mask Oxygen Flow Rate 6 07/02/23 11:54 07/02/23 12:04 07/02/23 12:14 Temperature Pulse Rate 123 H 122 H 121 H Respiratory Rate 19 28 H 30 H Blood Pressure 103/54 L 126/71 121/86 Pulse Oximetry 100 100 100 Oxygen Delivery Simple Face Mask Room Air Room Air Oxygen Flow Rate 2 07/02/23 12:24 07/02/23 12:35 07/02/23 12:44 Temperature Pulse Rate 120 H 115 H 113 H Respiratory Rate 31 H 21 H 22 H Blood Pressure 121/74 129/83 133/91 H Pulse Oximetry 100 100 100 Oxygen Delivery Room Air Room Air Room Air Oxygen Flow Rate 07/02/23 12:54 07/02/23 13:04 07/02/23 13:00 Temperature 96.8 F L Pulse Rate 123 H 122 H 134 H Respiratory Rate 22 H 29 H 18 Blood Pressure 137/95 H 138/93 H 132/84 Pulse Oximetry 98 98 98 Oxygen Delivery Room Air Room Air Oxygen Flow Rate 07/02/23 16:00 07/02/23 16:00 07/02/23 16:00 Temperature 97.3 F L Pulse Rate 138 H 174 H 174 H Respiratory Rate 18 18 Blood Pressure 142/77 H Pulse Oximetry 97 97 Oxygen Delivery Room Air Oxygen Flow Rate 07/02/23 18:00 07/02/23 18:00 07/02/23 20:00 Temperature 97.1 F L 98.2 F Pulse Rate 141 H 137 H 135 H Respiratory Rate 16 18 Blood Pressure 136/84 130/72 Pulse Oximetry 98 98 Oxygen Delivery Oxygen Flow Rate
--- NOTE | 2023-07-03 11:53 | PM.IMPN ---
Progress Note: A&P Assessment and Plan (1) Cholangitis: Code(s): K83.09 - Other cholangitis Status: Acute Assessment and Plan: treated successfully with ercp, sphincterotomy and balloon sweep bili is coming down and she is feeling better (2) SIRS (systemic inflammatory response syndrome): Code(s): R65.10 - Systemic inflammatory response syndrome (SIRS) of non-infectious origin without acute organ dysfunction Status: Acute Assessment and Plan: on abx, better (3) Cholelithiasis with choledocholithiasis: Code(s): K80.70 - Calculus of gallbladder and bile duct without cholecystitis without obstruction Status: Acute Assessment and Plan: s/p ercp surgery on board (4) Acute biliary pancreatitis: Code(s): K85.10 - Biliary acute pancreatitis without necrosis or infection Status: Acute Assessment and Plan: npo abx and fluids (5) Elevated liver enzymes: Code(s): R74.8 - Abnormal levels of other serum enzymes Status: Acute Assessment and Plan: monitor trending down after ercp Subjective Date/time seen: 07/03/23 11:53 Interval history: Patient reports abdominal pain is a little better Review of Systems Review of Systems: All systems reviewed & are unremarkable except as noted in HPI and below Exam Narrative: - GENERAL: Pleasant woman in no acute distress. Well-nourished. - EYES: EOMI. Anicteric. - HENT: Moist mucous membranes. - LUNGS: Clear to auscultation bilaterally, no wheezing, rhonchi, or rales. - CARDIOVASCULAR: Regular rate and rhythm. No murmur. No JVD. - ABDOMEN: Soft, non-tender and non-distended. No palpable masses. - EXTREMITIES: No edema. Peripheral pulses 2+. Non-tender. - NEUROLOGIC: No focal neurological deficits. CN II-XII grossly intact. - PSYCHIATRIC: Awake, Alert and oriented x 3. Appropriate mood and affect. - SKIN: No rashes or lesions. Warm. - LYMPH: No cervical lymphadenopathy. Objective Data Vital Signs Vital Signs: Vital Signs - 24 hr 07/02/23 11:54 07/02/23 12:04 07/02/23 12:14 Temperature Pulse Rate 123 H 122 H 121 H Respiratory Rate 19 28 H 30 H Blood Pressure 103/54 L 126/71 121/86 Pulse Oximetry 100 100 100 Oxygen Delivery Simple Face Mask Room Air Room Air Oxygen Flow Rate 2 07/02/23 12:24 07/02/23 12:35 07/02/23 12:44 Temperature Pulse Rate 120 H 115 H 113 H Respiratory Rate 31 H 21 H 22 H Blood Pressure 121/74 129/83 133/91 H Pulse Oximetry 100 100 100 Oxygen Delivery Room Air Room Air Room Air Oxygen Flow Rate 07/02/23 12:54 07/02/23 13:04 07/02/23 13:00 Temperature 96.8 F L Pulse Rate 123 H 122 H 134 H Respiratory Rate 22 H 29 H 18 Blood Pressure 137/95 H 138/93 H 132/84 Pulse Oximetry 98 98 98 Oxygen Delivery Room Air Room Air Oxygen Flow Rate 07/02/23 16:00 07/02/23 16:00 07/02/23 16:00 Temperature 97.3 F L Pulse Rate 138 H 174 H 174 H Respiratory Rate 18 18 Blood Pressure 142/77 H Pulse Oximetry 97 97 Oxygen Delivery Room Air Oxygen Flow Rate 07/02/23 18:00 07/02/23 18:00 07/02/23 20:00 Temperature 97.1 F L 98.2 F Pulse Rate 141 H 137 H 135 H Respiratory Rate 16 18 Blood Pressure 136/84 130/72 Pulse Oximetry 98 98 Oxygen Delivery Oxygen Flow Rate 07/02/23 20:00 07/02/23 20:00 07/02/23 22:00 Temperature Pulse Rate 143 H 140 H Respiratory Rate Blood Pressure Pulse Oximetry Oxygen Delivery Room Air Oxygen Flow Rate 07/03/23 00:00 07/03/23 00:00 07/03/23 04:00 Temperature 97.3 F L Pulse Rate 74 Respiratory Rate 15 Blood Pressure 123/95 H Pulse Oximetry 97 Oxygen Delivery Room Air Room Air Oxygen Flow Rate 07/03/23 04:00 07/03/23 00:00 07/03/23 02:00 Temperature 98 F Pulse Rate 70 139 H 138 H Respiratory Rate 16 Blood Pressure 134/66 Pulse Oximetry 96 Oxygen Delivery Oxygen Flow Rate 07/03/23 04:00 07/03/23 05:45 07/03/23 07:
[2023-07-03] MEDS: MORPHINE SULFATE (*CRX) 4 MG/ML INJ IV PUSH ×2 (12:04→15:43)
[2023-07-03] MEDS: ONDANSETRON INJ 4 MG/2 ML VIAL IV PUSH (12:05)
--- NOTE | 2023-07-03 13:51 | PC.NURSE ---
This patient, Juanita Sierra, was transferred to [facility] on 07/03/23 at 1345. Personal belongings sent with patient. Report given to Renate HOLLINGSWORTH. Appropriate documentation sent with patient.
--- NOTE | 2023-07-03 14:00 | PM.PNGS ---
Progress Note: A&P Assessment and Plan (1) Acute biliary pancreatitis: Code(s): K85.10 - Biliary acute pancreatitis without necrosis or infection Status: Acute Assessment and Plan: slowly improving s/p ERCP, cont to trend labs and exam, will need interval janet once labs normalized Subjective Subjective Date/Time Seen: 07/03/23 14:00 Interval history: feels a little better, still c upper abd pain Review of Systems Review of Systems: All systems reviewed & are unremarkable except as noted in HPI and below Exam Const: General: cooperative, comfortable and no acute distress Resp: Auscultation: clear to auscultation bilaterally Cardio: Rate: tachycardic Rhythm: regular rhythm GI: Inspection: normal to inspection and distended GI Palp: Yes abdominal tenderness, Yes Soft to palpation, Yes Tenderness to palpation present (GI), No Guarding due to palpation present (GI) and No Rigid due to palpation Objective Data Vital Signs Vital Signs: Vital Signs - 24 hr 07/02/23 16:00 07/02/23 16:00 07/02/23 16:00 Temperature 36.3 C L Pulse Rate 138 H 174 H 174 H Respiratory Rate 18 18 Blood Pressure 142/77 H Pulse Oximetry 97 97 Oxygen Delivery Room Air 07/02/23 18:00 07/02/23 18:00 07/02/23 20:00 Temperature 36.2 C L 36.8 C Pulse Rate 141 H 137 H 135 H Respiratory Rate 16 18 Blood Pressure 136/84 130/72 Pulse Oximetry 98 98 Oxygen Delivery 07/02/23 20:00 07/02/23 20:00 07/02/23 22:00 Temperature Pulse Rate 143 H 140 H Respiratory Rate Blood Pressure Pulse Oximetry Oxygen Delivery Room Air 07/03/23 00:00 07/03/23 00:00 07/03/23 04:00 Temperature 36.3 C L Pulse Rate 74 Respiratory Rate 15 Blood Pressure 123/95 H Pulse Oximetry 97 Oxygen Delivery Room Air Room Air 07/03/23 04:00 07/03/23 00:00 07/03/23 02:00 Temperature 36.6 C Pulse Rate 70 139 H 138 H Respiratory Rate 16 Blood Pressure 134/66 Pulse Oximetry 96 Oxygen Delivery 07/03/23 04:00 07/03/23 05:45 07/03/23 07:55 Temperature 36.7 C Pulse Rate 139 H 144 H 140 H Respiratory Rate 17 Blood Pressure 134/72 Pulse Oximetry 98 Oxygen Delivery 07/03/23 08:00 07/03/23 11:18 07/03/23 08:00 Temperature Pulse Rate 144 H 143 H Respiratory Rate Blood Pressure Pulse Oximetry Oxygen Delivery Room Air Intake/Output Intake/Output: Intake & Output 06/30/23 07/01/23 07/02/23 07/03/23 23:59 23:59 23:59 23:59 Intake Total 200 5700 1700 Output Total 1450 550 Balance 200 4250 1150 Meds/Results Medications: Active Medications Generic Name Dose Route Start Last Admin Trade Name Freq PRN Reason Stop Dose Admin Sodium Chloride 1,000 mls @ 150 mls/hr 07/01/23 16:50 07/03/23 11:48 Normal Saline Iv IV CONT 150 mls/hr .Q6H40M SACHI Infusion Metronidazole 500 mg in 100 mls @ 100 mls/hr 07/01/23 21:00 07/03/23 10:02 Flagyl 500 Mg/Iso Soln 100 Ml IVPB Infused Q6H SACHI Infusion Ceftriaxone Sodium 2 gm in 100 mls @ 200 mls/hr 07/01/23 20:00 07/02/23 21:41 Rocephin 2 Gm/Ns 100 Ml IVPB Infused Q24H SACHI Infusion Ibuprofen 800 mg in 200 mls @ 400 mls/hr 07/02/23 09:25 07/03/23 12:11 Caldolor 800 Mg/200 Ml IVPB Infused Q6H PRN Infusion Pain Rated 1-3 Morphine Sulfate 2 mg 07/02/23 09:25 07/02/23 18:50 Morphine Sulfate (*Crx) 2 Mg/Ml Inj IV PUSH 2 mg Q2H PRN Administration Pain Rated 4-6 Morphine Sulfate 4 mg 07/02/23 09:25 07/03/23 12:04 Morphine Sulfate (*Crx) 4 Mg/Ml Inj IV PUSH 4 mg Q2H PRN Administration Pain Rated 7-10 Naloxone HCl 0.1 mg 07/02/23 09:25 Naloxone Hcl 0.4 Mg/Ml Vial IV PUSH Q2M PRN Opiate Reversal Ondansetron HCl 4 mg 07/01/23 16:48 07/03/23 12:05 Ondansetron Inj 4 Mg/2 Ml Vial IV PUSH 4 mg Q4H PRN Administration Nausea Polyethylene Glycol 17 gm 07/03/23 09:00 07/03/23 11:25 Polyethylene Glycol 3
--- NOTE | 2023-07-03 14:43 | PC.NURSE ---
RN spoke to Ismael and Pete both okay with the patient being changed to a clear liquid diet.
--- NOTE | 2023-07-03 14:55 | WPDANESPN ---
Anes - Prog Note Post-Op Date/Time: 07/03/23 14:55 Cardiovascular status: normal Respiratory status: normal Airway patency: baseline Mental status: baseline Post-Op hydration status: normal Vital Signs: Last Vital Signs Temp 36.7 C 07/03/23 07:55 Pulse 143 H 07/03/23 11:18 Resp 17 07/03/23 07:55 BP 134/72 07/03/23 07:55 Pulse Ox 98 07/03/23 07:55 O2 Del Method Room Air 07/03/23 08:00 O2 Flow Rate 2 07/02/23 11:54 Pain Score (VAS): 01/08 I/O: Intake & Output 07/02/23 07/03/23 07/03/23 23:59 07:59 15:59 Intake Total 500 1400 300 Output Total 1450 150 400 Balance -950 1250 -100 Laboratory Tests 07/03/23 05:06 07/03/23 05:06 07/03/23 05:06 WBC 19.5 H RBC 4.71 Hgb 13.9 D Hct 41.8 MCV 88.7 MCH 29.5 MCHC 33.3 RDW 13.3 Plt Count 200 MPV 11.2 H Sodium 138 Potassium 4.5 Chloride 105 Carbon Dioxide 24 Anion Gap 9 BUN 21 H Creatinine 1.00 Estim Creat Clear Calc 77 Estimated GFR > 60 Glucose 107 Calcium 8.1 L Total Bilirubin 1.6 H AST 95 H ALT 172 H Alkaline Phosphatase 95 Total Protein 6.0 L Albumin 3.0 L Lipase 8251 H Post-procedural complaints: none Patient Feedback: Patient satisfied with anesthetic care.
[2023-07-03] MEDS: SODIUM CHLORIDE 0.9% IV 1,000 ML 150 ML IV CONT (19:33)
[2023-07-03] MEDS: SENNA/DOCUSATE SODIUM TABLET 2 TAB PO (20:52)
[2023-07-03] MEDS: cefTRIAXone 2 GM/NS 100 ML 2 GM/100 ML BAG IVPB (20:52)
[2023-07-03] MEDS: MORPHINE SULFATE (*CRX) 2 MG/ML INJ IV PUSH (20:55)
[2023-07-04] MEDS: MORPHINE SULFATE (*CRX) 4 MG/ML INJ IV PUSH (00:02)
[2023-07-04] MEDS: IBUPROFEN IV 800 MG/200 ML 800 MG/200 ML BAG 400 MG IVPB ×2 (01:34→12:09)
[2023-07-04] MEDS: metroNIDAZOLE 500 MG/ISO 100ML 500 MG/100 ML BAG 100 MG IVPB ×3 (02:32→22:02)
[2023-07-04] MEDS: SODIUM CHLORIDE 0.9% IV 1,000 ML 150 ML IV CONT ×2 (04:59→09:41)
[2023-07-04] MEDS: MORPHINE SULFATE (*CRX) 2 MG/ML INJ IV PUSH ×5 (04:59→20:47)
[2023-07-04 05:43] VITALS: BP 135/62; PULSE 133; RESP 18; TEMP 37.2; O2SAT 94
[2023-07-04] MEDS: SODIUM CHLORIDE 0.9% IV 2,000 ML 999 ML IV CONT (06:39)
[2023-07-04 07:15] LABS: Hematocrit 30.5 % (37.0-47.0); Hemoglobin 9.8 g/dL (12.0-15.0); Mean Corpuscular HGB Conc 32.1 g/dl (32-36); Mean Corpuscular Hemoglobin 29.3 pg (26-34); Mean Platelet Volume 11.5 fl (7.4-10.4); Platelet Count Result 166 k/mm3 (150-375); Red Blood Count 3.35 M/mm3 (4.2-5.4); Red Cell Distribution Width 13.9 % (11.5-14.5); White Blood Count 14.8 K/mm3 (4.5-10.0)
[2023-07-04 07:23] LABS: Lactic Acid Reflex 1.4 mmol/L (0.7-2.0)
[2023-07-04 07:49] LABS: Alanine Aminotransferase 103 U/L (6-35); Albumin Level 2.6 g/dL (3.5-5.1); Alkaline Phosphatase 79 U/L (38-126); Anion Gap 7 mmol/L (8-16); Aspartate Amino Transferase 51 U/L (14-36); Bilirubin,Total 1.1 mg/dL (0.2-1.3); Blood Urea Nitrogen 15 mg/dL (7-17); Calcium 7.5 mg/dL (8.4-10.2); Carbon Dioxide 21 mmol/L (22-30); Chloride 109 mmol/L (98-107); Estimated CRCL calculation 95 ml/min; Estimated Glomerular Filt Rate > 60; Glucose 85 mg/dL (65-110); Potassium 3.8 mmol/L (3.4-5.0); Sodium 137 mmol/L (137-145)
[2023-07-04 07:50] LABS: Lipase 3393 U/L (23-300)
[2023-07-04 08:00] VITALS: BP 133/51; PULSE 138; RESP 20; TEMP 37.6; O2SAT 90
[2023-07-04] MEDS: metroNIDAZOLE 500 MG/ISO 100ML 500 MG/100 ML BAG 200 MG IVPB (09:42)
[2023-07-04] MEDS: polyethylene glycoL 3350 17 GM POWD.PACK PO (09:43)
--- NOTE | 2023-07-04 10:07 | PM.IMPN ---
Progress Note: A&P Assessment and Plan (1) Cholangitis: Code(s): K83.09 - Other cholangitis Status: Acute Assessment and Plan: treated successfully with ercp, sphincterotomy and balloon sweep bili is coming down and she is feeling better (2) SIRS (systemic inflammatory response syndrome): Code(s): R65.10 - Systemic inflammatory response syndrome (SIRS) of non-infectious origin without acute organ dysfunction Status: Acute Assessment and Plan: on abx, better (3) Cholelithiasis with choledocholithiasis: Code(s): K80.70 - Calculus of gallbladder and bile duct without cholecystitis without obstruction Status: Acute Assessment and Plan: s/p ercp surgery on board Possible cholecystectomy once labs trend down (4) Acute biliary pancreatitis: Code(s): K85.10 - Biliary acute pancreatitis without necrosis or infection Status: Acute Assessment and Plan: On clear liquid diet abx and fluids (5) Elevated liver enzymes: Code(s): R74.8 - Abnormal levels of other serum enzymes Status: Acute Assessment and Plan: monitor trending down after ercp Subjective Date/time seen: 07/04/23 10:07 Interval history: Abdominal pain better Review of Systems Review of Systems: All systems reviewed & are unremarkable except as noted in HPI and below Exam Narrative: - GENERAL: Pleasant woman in no acute distress. Well-nourished. - EYES: EOMI. Anicteric. - HENT: Moist mucous membranes. - LUNGS: Clear to auscultation bilaterally, no wheezing, rhonchi, or rales. - CARDIOVASCULAR: Regular rate and rhythm. No murmur. No JVD. - ABDOMEN: Soft, non-tender and non-distended. No palpable masses. - EXTREMITIES: No edema. Peripheral pulses 2+. Non-tender. - NEUROLOGIC: No focal neurological deficits. CN II-XII grossly intact. - PSYCHIATRIC: Awake, Alert and oriented x 3. Appropriate mood and affect. - SKIN: No rashes or lesions. Warm. - LYMPH: No cervical lymphadenopathy. Objective Data Vital Signs Vital Signs: Vital Signs - 24 hr 07/03/23 11:18 07/03/23 16:00 07/03/23 16:00 Temperature 98.4 F Pulse Rate 143 H 133 H Respiratory Rate 18 Blood Pressure 133/83 Pulse Oximetry 98 Oxygen Delivery Room Air 07/03/23 21:05 07/04/23 05:43 Temperature 97.8 F 98.9 F Pulse Rate 134 H 133 H Respiratory Rate 18 18 Blood Pressure 120/59 L 135/62 Pulse Oximetry 98 94 Oxygen Delivery Intake/Output Intake/Output: Intake & Output 07/01/23 07/02/23 07/03/23 07/04/23 23:59 23:59 23:59 23:59 Intake Total 200 / 200 5700 / 5700 3680 / 3680 3040 / 3040 Output Total 1450 / 1450 550 / 550 Balance 200 / 200 4250 / 4250 3130 / 3130 3040 / 3040 Meds/Results Medications: Active Medications Generic Name Dose Route Start Last Admin Trade Name Freq PRN Reason Stop Dose Admin Sodium Chloride 1,000 mls @ 200 mls/hr 07/01/23 16:50 07/04/23 09:41 Normal Saline Iv IV CONT 150 mls/hr .Q5H SACHI Administration Metronidazole 500 mg in 100 mls @ 100 mls/hr 07/01/23 21:00 07/04/23 09:42 Flagyl 500 Mg/Iso Soln 100 Ml IVPB 200 mls/hr Q6H SACHI Administration Ceftriaxone Sodium 2 gm in 100 mls @ 200 mls/hr 07/01/23 20:00 07/03/23 21:22 Rocephin 2 Gm/Ns 100 Ml IVPB Infused Q24H SACHI Infusion Ibuprofen 800 mg in 200 mls @ 400 mls/hr 07/02/23 09:25 07/04/23 02:04 Caldolor 800 Mg/200 Ml IVPB Infused Q6H PRN Infusion Pain Rated 1-3 Morphine Sulfate 2 mg 07/02/23 09:25 07/04/23 09:41 Morphine Sulfate (*Crx) 2 Mg/Ml Inj IV PUSH 2 mg Q2H PRN Administration Pain Rated 4-6 Morphine Sulfate 4 mg 07/02/23 09:25 07/04/23 00:02 Morphine Sulfate (*Crx) 4 Mg/Ml Inj IV PUSH 4 mg Q2H PRN Administration Pain Rated 7-10 Naloxone HCl 0.1 mg 07/02/23 09:25 Naloxone Hcl 0.4 Mg/Ml Vial IV PUSH Q2M PRN Opiate Reversal Ondansetron HCl 4 mg 07/01/23 16:48 07/03/23 12:05 On
--- NOTE | 2023-07-04 10:11 | PM.PNGS ---
Progress Note: A&P Assessment and Plan (1) Acute biliary pancreatitis: Code(s): K85.10 - Biliary acute pancreatitis without necrosis or infection Status: Acute Assessment and Plan: labs and exam slowly improving, d/w pt and family and they would like to proceed c interval cholecystectomy during this hospitalization, will plan for tomorrow if labs/exam cont to improve, cont clears for now, IV abx Subjective Subjective Date/Time Seen: 07/04/23 10:11 Interval history: still quite uncomfortable, upper abd pain, bloating, cisco some clears Review of Systems Review of Systems: All systems reviewed & are unremarkable except as noted in HPI and below Exam Const: General: cooperative, no acute distress and uncomfortable Resp: Auscultation: clear to auscultation bilaterally Cardio: Rate: tachycardic Rhythm: regular rhythm GI: Inspection: normal to inspection and distended GI Palp: Yes abdominal tenderness, Yes Soft to palpation, Yes Tenderness to palpation present (GI), No Guarding due to palpation present (GI) and No Rigid due to palpation Objective Data Vital Signs Vital Signs: Vital Signs - 24 hr 07/03/23 11:18 07/03/23 16:00 07/03/23 16:00 Temperature 36.9 C Pulse Rate 143 H 133 H Respiratory Rate 18 Blood Pressure 133/83 Pulse Oximetry 98 Oxygen Delivery Room Air 07/03/23 21:05 07/04/23 05:43 Temperature 36.6 C 37.2 C Pulse Rate 134 H 133 H Respiratory Rate 18 18 Blood Pressure 120/59 L 135/62 Pulse Oximetry 98 94 Oxygen Delivery Intake/Output Intake/Output: Intake & Output 07/01/23 07/02/23 07/03/23 07/04/23 23:59 23:59 23:59 23:59 Intake Total 200 5700 3680 3040 Output Total 1450 550 Balance 200 4250 3130 3040 Meds/Results Medications: Active Medications Generic Name Dose Route Start Last Admin Trade Name Freq PRN Reason Stop Dose Admin Sodium Chloride 1,000 mls @ 200 mls/hr 07/01/23 16:50 07/04/23 09:41 Normal Saline Iv IV CONT 150 mls/hr .Q5H SACHI Administration Metronidazole 500 mg in 100 mls @ 100 mls/hr 07/01/23 21:00 07/04/23 09:42 Flagyl 500 Mg/Iso Soln 100 Ml IVPB 200 mls/hr Q6H SACHI Administration Ceftriaxone Sodium 2 gm in 100 mls @ 200 mls/hr 07/01/23 20:00 07/03/23 21:22 Rocephin 2 Gm/Ns 100 Ml IVPB Infused Q24H SACHI Infusion Ibuprofen 800 mg in 200 mls @ 400 mls/hr 07/02/23 09:25 07/04/23 02:04 Caldolor 800 Mg/200 Ml IVPB Infused Q6H PRN Infusion Pain Rated 1-3 Morphine Sulfate 2 mg 07/02/23 09:25 07/04/23 09:41 Morphine Sulfate (*Crx) 2 Mg/Ml Inj IV PUSH 2 mg Q2H PRN Administration Pain Rated 4-6 Morphine Sulfate 4 mg 07/02/23 09:25 07/04/23 00:02 Morphine Sulfate (*Crx) 4 Mg/Ml Inj IV PUSH 4 mg Q2H PRN Administration Pain Rated 7-10 Naloxone HCl 0.1 mg 07/02/23 09:25 Naloxone Hcl 0.4 Mg/Ml Vial IV PUSH Q2M PRN Opiate Reversal Ondansetron HCl 4 mg 07/01/23 16:48 07/03/23 12:05 Ondansetron Inj 4 Mg/2 Ml Vial IV PUSH 4 mg Q4H PRN Administration Nausea Polyethylene Glycol 17 gm 07/03/23 09:00 07/04/23 09:43 Polyethylene Glycol 3350 17 Gm Powd.Pack PO 17 gm QAM SACHI Administration Senna/Docusate Sodium 2 tab 07/02/23 21:00 07/03/23 20:52 Senna/Docusate Sodium Tablet PO 2 tab HS SACHI Administration Radiology Results: ITS Impressions Chest X-Ray 07/01/23 14:36 IMPRESSION: 1. No acute cardiopulmonary disease. Abdomen Ultrasound 07/01/23 16:10 IMPRESSION: 1. Dilated common bile duct, sludge and stones in the gallbladder, and mild gallbladder wall thickening, and free fluid in the right upper quadrant. Findings could reflect distal common bile duct obstruction and/or acute cholecystitis. Endo Retro Cholangiopancreatogram 07/02/23 16:02 IMPRESSION: 1. Balloon sweeping of what appears to be a small amount of sludge or gallstones in the distal common bile duct. Please refer to the ERCP p
--- NOTE | 2023-07-04 10:15 | WPDGIPROGNO ---
Progress Note: A&P Assessment and Plan (1) Cholangitis: Code(s): K83.09 - Other cholangitis Status: Acute Assessment and Plan: treated successfully with ercp, sphincterotomy and balloon sweep normalization of bilirubin and she looks clinically much better lap janet probably tomorrow (2) SIRS (systemic inflammatory response syndrome): Code(s): R65.10 - Systemic inflammatory response syndrome (SIRS) of non-infectious origin without acute organ dysfunction Status: Acute Assessment and Plan: on abx, better wbc trending down (3) Cholelithiasis with choledocholithiasis: Code(s): K80.70 - Calculus of gallbladder and bile duct without cholecystitis without obstruction Status: Acute Assessment and Plan: s/p ercp, also had signs of early cholangitis surgery on board (4) Acute biliary pancreatitis: Code(s): K85.10 - Biliary acute pancreatitis without necrosis or infection Status: Acute Assessment and Plan: CL diet abx and fluids (5) Elevated liver enzymes: Code(s): R74.8 - Abnormal levels of other serum enzymes Status: Acute Assessment and Plan: monitor trending down after ercp Subjective Date/time seen: 07/04/23 10:15 Interval history: still with abdominal pain but overall better since ercp Review of Systems Review of Systems: All systems reviewed & are unremarkable except as noted in HPI and below Exam Const: General: cooperative, no acute distress and uncomfortable HENMT: Face/Nose/Sinus: Normal nares present Eyes: Pupils: Equal, round and reactive pupils present Neck: Neck: supple Resp: Auscultation: clear to auscultation bilaterally Cardio: Rate: tachycardic Rhythm: regular rhythm GI: Inspection: normal to inspection and distended GI Palp: Yes abdominal tenderness, Yes Soft to palpation, Yes Tenderness to palpation present (GI), No Guarding due to palpation present (GI) and No Rigid due to palpation Skin: General skin exam: no rashes or lesions noted Neuro: Speech: normal speech Motor exam (neuro): 5/5 motor strength present throughout Extrem: General: normal to inspection Psych: Mental Status: mental status grossly normal Objective Data Vital Signs Vital Signs: Vital Signs - 24 hr 07/03/23 11:18 07/03/23 16:00 07/03/23 16:00 Temperature 98.4 F Pulse Rate 143 H 133 H Respiratory Rate 18 Blood Pressure 133/83 Pulse Oximetry 98 Oxygen Delivery Room Air 07/03/23 21:05 07/04/23 05:43 Temperature 97.8 F 98.9 F Pulse Rate 134 H 133 H Respiratory Rate 18 18 Blood Pressure 120/59 L 135/62 Pulse Oximetry 98 94 Oxygen Delivery Intake/Output Intake/Output: Intake & Output 07/01/23 07/02/23 07/03/23 07/04/23 23:59 23:59 23:59 23:59 Intake Total 200 5700 3680 3040 Output Total 1450 550 Balance 200 4250 3130 3040 Meds/Results Medications: Active Medications Generic Name Dose Route Start Last Admin Trade Name Freq PRN Reason Stop Dose Admin Sodium Chloride 1,000 mls @ 200 mls/hr 07/01/23 16:50 07/04/23 09:41 Normal Saline Iv IV CONT 150 mls/hr .Q5H SACHI Administration Metronidazole 500 mg in 100 mls @ 100 mls/hr 07/01/23 21:00 07/04/23 09:42 Flagyl 500 Mg/Iso Soln 100 Ml IVPB 200 mls/hr Q6H SACHI Administration Ceftriaxone Sodium 2 gm in 100 mls @ 200 mls/hr 07/01/23 20:00 07/03/23 21:22 Rocephin 2 Gm/Ns 100 Ml IVPB Infused Q24H SACHI Infusion Ibuprofen 800 mg in 200 mls @ 400 mls/hr 07/02/23 09:25 07/04/23 02:04 Caldolor 800 Mg/200 Ml IVPB Infused Q6H PRN Infusion Pain Rated 1-3 Morphine Sulfate 2 mg 07/02/23 09:25 07/04/23 09:41 Morphine Sulfate (*Crx) 2 Mg/Ml Inj IV PUSH 2 mg Q2H PRN Administration Pain Rated 4-6 Morphine Sulfate 4 mg 07/02/23 09:25 07/04/23 00:02 Morphine Sulfate (*Crx) 4 Mg/Ml Inj IV PUSH 4 mg Q2H PRN Administration Pain Rated 7-10 Naloxone HCl 0.1 mg
[2023-07-04] MEDS: SODIUM CHLORIDE 0.9% IV 1,000 ML 200 ML IV CONT ×2 (15:21→22:02)
[2023-07-04 16:00] VITALS: BP 133/51; PULSE 138; RESP 16; TEMP 37.6; O2SAT 90
[2023-07-04] MEDS: SENNA/DOCUSATE SODIUM TABLET 2 TAB PO (20:47)
[2023-07-04] MEDS: cefTRIAXone 2 GM/NS 100 ML 2 GM/100 ML BAG IVPB (20:47)
[2023-07-04 22:00] VITALS: BP 136/68; PULSE 134; RESP 20; TEMP 37.7; O2SAT 92
[2023-07-05] VITALS (15 sets, daily range): BP systolic 130–146; BP diastolic 61–95; PULSE 114–135; RESP 18–22; TEMP 36.9–37.7; O2SAT 74–99
[2023-07-05] MEDS: MORPHINE SULFATE (*CRX) 2 MG/ML INJ IV PUSH ×3 (01:21→12:06)
[2023-07-05] MEDS: SODIUM CHLORIDE 0.9% IV 1,000 ML 200 ML IV CONT ×7 (03:31→23:06)
[2023-07-05] MEDS: metroNIDAZOLE 500 MG/ISO 100ML 500 MG/100 ML BAG 100 MG IVPB ×4 (03:31→20:56)
[2023-07-05] MEDS: MORPHINE SULFATE (*CRX) 4 MG/ML INJ IV PUSH ×3 (04:05→20:59)
[2023-07-05 06:40] LABS: Hematocrit 24.3 % (37.0-47.0); Hemoglobin 7.8 g/dL (12.0-15.0); Mean Corpuscular HGB Conc 32.1 g/dl (32-36); Mean Corpuscular Hemoglobin 29.2 pg (26-34); Mean Platelet Volume 11.8 fl (7.4-10.4); Platelet Count Result 152 k/mm3 (150-375); Red Blood Count 2.67 M/mm3 (4.2-5.4); Red Cell Distribution Width 14.3 % (11.5-14.5); White Blood Count 10.7 K/mm3 (4.5-10.0)
[2023-07-05 06:51] LABS: Alanine Aminotransferase 74 U/L (6-35); Albumin Level 2.4 g/dL (3.5-5.1); Alkaline Phosphatase 67 U/L (38-126); Anion Gap 6 mmol/L (8-16); Aspartate Amino Transferase 36 U/L (14-36); Bilirubin,Total 0.8 mg/dL (0.2-1.3); Blood Urea Nitrogen 10 mg/dL (7-17); Calcium 7.3 mg/dL (8.4-10.2); Carbon Dioxide 20 mmol/L (22-30); Chloride 111 mmol/L (98-107); Estimated CRCL calculation 124 ml/min; Estimated Glomerular Filt Rate > 60; Glucose 82 mg/dL (65-110); Lipase 803 U/L (23-300); Potassium 3.2 mmol/L (3.4-5.0); Sodium 137 mmol/L (137-145)
--- NOTE | 2023-07-05 07:19 | WPDHPUPDATE1 ---
History and Physical Update Update Date/Time: 07/05/23 07:19 History and Physical has been reviewed, including an updated exam of the patient. There are NO changes in the patient's condition. Risks, benefits, and alternatives have been discussed and questions answered. Patient agrees to proceed with procedure.
[2023-07-05] MEDS: polyethylene glycoL 3350 17 GM POWD.PACK PO (08:57)
--- NOTE | 2023-07-05 09:03 | PM.PNGS ---
Progress Note: A&P Assessment and Plan (1) Acute biliary pancreatitis: Code(s): K85.10 - Biliary acute pancreatitis without necrosis or infection Status: Acute Assessment and Plan: will plan for interval cholecystectomy tomorrow if medically cleared (2) Oxygen desaturation: Code(s): R09.02 - Hypoxemia Status: Acute Assessment and Plan: workup per primary team, will hold off on surgery today Subjective Subjective Date/Time Seen: 07/05/23 09:03 Interval history: feels a little better, had desat overnight and now on some supplemental O2 Review of Systems Review of Systems: All systems reviewed & are unremarkable except as noted in HPI and below Exam Const: General: cooperative, no acute distress, ill appearing and uncomfortable Resp: Auscultation: clear to auscultation bilaterally Cardio: Rate: regular rate Rhythm: regular rhythm GI: Inspection: normal to inspection and distended GI Palp: Yes abdominal tenderness, Yes Soft to palpation, Yes Tenderness to palpation present (GI), No Guarding due to palpation present (GI) and No Rigid due to palpation Objective Data Vital Signs Vital Signs: Vital Signs - 24 hr 07/04/23 09:40 07/04/23 16:00 07/04/23 22:00 Temperature 37.6 C 37.7 C H Pulse Rate 138 H 134 H Respiratory Rate 16 20 Blood Pressure 133/51 L 136/68 Pulse Oximetry 90 92 Oxygen Delivery Room Air Oxygen Flow Rate 07/05/23 04:51 07/05/23 04:48 07/05/23 04:52 Temperature 37.0 C Pulse Rate Respiratory Rate Blood Pressure Pulse Oximetry 84 L 95 Oxygen Delivery Room Air Nasal Cannula Oxygen Flow Rate 2 07/05/23 06:00 Temperature 37.3 C Pulse Rate 127 H Respiratory Rate 18 Blood Pressure 130/66 Pulse Oximetry 94 Oxygen Delivery Oxygen Flow Rate Intake/Output Intake/Output: Intake & Output 07/02/23 07/03/23 07/04/23 07/05/23 23:59 23:59 23:59 23:59 Intake Total 5700 3680 6390 1500 Output Total 1450 550 Balance 4250 3130 6390 1500 Meds/Results Medications: Active Medications Generic Name Dose Route Start Last Admin Trade Name Freq PRN Reason Stop Dose Admin Sodium Chloride 1,000 mls @ 200 mls/hr 07/01/23 16:50 07/05/23 03:31 Normal Saline Iv IV CONT 200 mls/hr .Q5H SACHI Administration Metronidazole 500 mg in 100 mls @ 100 mls/hr 07/01/23 21:00 07/05/23 08:54 Flagyl 500 Mg/Iso Soln 100 Ml IVPB 100 mls/hr Q6H SACHI Administration Ceftriaxone Sodium 2 gm in 100 mls @ 200 mls/hr 07/01/23 20:00 07/04/23 21:17 Rocephin 2 Gm/Ns 100 Ml IVPB Infused Q24H SACHI Infusion Ibuprofen 800 mg in 200 mls @ 400 mls/hr 07/02/23 09:25 07/04/23 12:39 Caldolor 800 Mg/200 Ml IVPB Infused Q6H PRN Infusion Pain Rated 1-3 Morphine Sulfate 2 mg 07/02/23 09:25 07/05/23 01:21 Morphine Sulfate (*Crx) 2 Mg/Ml Inj IV PUSH 2 mg Q2H PRN Administration Pain Rated 4-6 Morphine Sulfate 4 mg 07/02/23 09:25 07/05/23 04:05 Morphine Sulfate (*Crx) 4 Mg/Ml Inj IV PUSH 4 mg Q2H PRN Administration Pain Rated 7-10 Naloxone HCl 0.1 mg 07/02/23 09:25 Naloxone Hcl 0.4 Mg/Ml Vial IV PUSH Q2M PRN Opiate Reversal Ondansetron HCl 4 mg 07/01/23 16:48 07/03/23 12:05 Ondansetron Inj 4 Mg/2 Ml Vial IV PUSH 4 mg Q4H PRN Administration Nausea Polyethylene Glycol 17 gm 07/03/23 09:00 07/05/23 08:57 Polyethylene Glycol 3350 17 Gm Powd.Pack PO 17 gm QAM SACHI Administration Senna/Docusate Sodium 2 tab 07/02/23 21:00 07/04/23 20:47 Senna/Docusate Sodium Tablet PO 2 tab HS SACHI Administration Radiology Results: ITS Impressions Abdomen Ultrasound 07/01/23 16:10 IMPRESSION: 1. Dilated common bile duct, sludge and stones in the gallbladder, and mild gallbladder wall thickening, and free fluid in the right upper quadrant. Findings could reflect distal common bile duct obstruction and/or acute cholecystitis. Endo Retro Ch
--- NOTE | 2023-07-05 11:02 | PM.IMPN ---
Progress Note: A&P Assessment and Plan (1) Cholangitis: Code(s): K83.09 - Other cholangitis Status: Acute Assessment and Plan: treated successfully with ercp, sphincterotomy and balloon sweep Labs are better. Patient medically cleared for cholecystectomy (2) SIRS (systemic inflammatory response syndrome): Code(s): R65.10 - Systemic inflammatory response syndrome (SIRS) of non-infectious origin without acute organ dysfunction Status: Acute Assessment and Plan: on abx, better (3) Cholelithiasis with choledocholithiasis: Code(s): K80.70 - Calculus of gallbladder and bile duct without cholecystitis without obstruction Status: Acute Assessment and Plan: s/p ercp surgery on board Possible cholecystectomy tomorrow (4) Acute biliary pancreatitis: Code(s): K85.10 - Biliary acute pancreatitis without necrosis or infection Status: Acute Assessment and Plan: On clear liquid diet abx and fluids (5) Elevated liver enzymes: Code(s): R74.8 - Abnormal levels of other serum enzymes Status: Acute Assessment and Plan: monitor trending down after ercp Subjective Date/time seen: 07/05/23 11:02 Interval history: Abdominal pain better Review of Systems Review of Systems: All systems reviewed & are unremarkable except as noted in HPI and below Exam Narrative: - GENERAL: Pleasant woman in no acute distress. Well-nourished. - EYES: EOMI. Anicteric. - HENT: Moist mucous membranes. - LUNGS: Clear to auscultation bilaterally, no wheezing, rhonchi, or rales. - CARDIOVASCULAR: Regular rate and rhythm. No murmur. No JVD. - ABDOMEN: Soft, non-tender and non-distended. No palpable masses. - EXTREMITIES: No edema. Peripheral pulses 2+. Non-tender. - NEUROLOGIC: No focal neurological deficits. CN II-XII grossly intact. - PSYCHIATRIC: Awake, Alert and oriented x 3. Appropriate mood and affect. - SKIN: No rashes or lesions. Warm. - LYMPH: No cervical lymphadenopathy. Objective Data Vital Signs Vital Signs: Vital Signs - 24 hr 07/04/23 16:00 07/04/23 22:00 07/05/23 04:51 Temperature 99.6 F 100 F H 98.6 F Pulse Rate 138 H 134 H Respiratory Rate 16 20 Blood Pressure 133/51 L 136/68 Pulse Oximetry 90 92 Oxygen Delivery Oxygen Flow Rate 07/05/23 04:48 07/05/23 04:52 07/05/23 06:00 Temperature 99.2 F Pulse Rate 127 H Respiratory Rate 18 Blood Pressure 130/66 Pulse Oximetry 84 L 95 94 Oxygen Delivery Room Air Nasal Cannula Oxygen Flow Rate 2 07/05/23 08:00 07/05/23 10:40 07/05/23 10:52 Temperature Pulse Rate Respiratory Rate Blood Pressure Pulse Oximetry 95 99 94 Oxygen Delivery Nasal Cannula Nasal Cannula Room Air Oxygen Flow Rate 2 2 Intake/Output Intake/Output: Intake & Output 07/02/23 07/03/23 07/04/23 07/05/23 23:59 23:59 23:59 23:59 Intake Total 5700 / 5700 3680 / 3680 6390 / 6390 3390 / 3390 Output Total 1450 / 1450 550 / 550 Balance 4250 / 4250 3130 / 3130 6390 / 6390 3390 / 3390 Meds/Results Medications: Active Medications Generic Name Dose Route Start Last Admin Trade Name Freq PRN Reason Stop Dose Admin Sodium Chloride 1,000 mls @ 200 mls/hr 07/01/23 16:50 07/05/23 10:40 Normal Saline Iv IV CONT 200 mls/hr .Q5H SACHI Administration Metronidazole 500 mg in 100 mls @ 100 mls/hr 07/01/23 21:00 07/05/23 09:54 Flagyl 500 Mg/Iso Soln 100 Ml IVPB Infused Q6H SACHI Infusion Ceftriaxone Sodium 2 gm in 100 mls @ 200 mls/hr 07/01/23 20:00 07/04/23 21:17 Rocephin 2 Gm/Ns 100 Ml IVPB Infused Q24H SACHI Infusion Ibuprofen 800 mg in 200 mls @ 400 mls/hr 07/02/23 09:25 07/04/23 12:39 Caldolor 800 Mg/200 Ml IVPB Infused Q6H PRN Infusion Pain Rated 1-3 Morphine Sulfate 2 mg 07/02/23 09:25 07/05/23 09:03 Morphine Sulfate (*Crx) 2 Mg/Ml Inj IV PUSH 2 mg Q2H PRN Administration Pain Rated 4-6 Morphine Sulfate 4 mg
--- NOTE | 2023-07-05 13:55 | WPDGIPROGNO ---
Progress Note: A&P Assessment and Plan (1) Cholangitis: Code(s): K83.09 - Other cholangitis Status: Acute Assessment and Plan: treated successfully with ercp, sphincterotomy and balloon sweep liver enzymes and bili continue to improve, much better lap janet per surgery (2) SIRS (systemic inflammatory response syndrome): Code(s): R65.10 - Systemic inflammatory response syndrome (SIRS) of non-infectious origin without acute organ dysfunction Status: Acute Assessment and Plan: on abx, better wbc trending down (3) Cholelithiasis with choledocholithiasis: Code(s): K80.70 - Calculus of gallbladder and bile duct without cholecystitis without obstruction Status: Acute Assessment and Plan: treated successfully with ercp, also had signs of early cholangitis surgery on board (4) Acute biliary pancreatitis: Code(s): K85.10 - Biliary acute pancreatitis without necrosis or infection Status: Acute Assessment and Plan: CL diet abx and fluids (5) Elevated liver enzymes: Code(s): R74.8 - Abnormal levels of other serum enzymes Status: Acute Assessment and Plan: continue to improve (6) Anemia: Code(s): D64.9 - Anemia, unspecified Status: Acute Assessment and Plan: noted more anemia monitor count, had sphincterotomy- if melena and drop of h/h may need to repeat scope will use protonix for now (7) Oxygen desaturation: Code(s): R09.02 - Hypoxemia Status: Acute Assessment and Plan: overnight, now on room air Subjective Date/time seen: 07/05/23 13:55 Interval history: she is more comfortable and overall better with less pain had dark brown stool Review of Systems Review of Systems: All systems reviewed & are unremarkable except as noted in HPI and below Exam Const: General: cooperative and no acute distress HENMT: Face/Nose/Sinus: Normal nares present Eyes: Pupils: Equal, round and reactive pupils present Neck: Neck: supple Resp: Auscultation: clear to auscultation bilaterally Cardio: Rhythm: regular rhythm GI: Inspection: normal to inspection GI Palp: Yes Soft to palpation, Yes Tenderness to palpation present (GI), No Guarding due to palpation present (GI) and No Rigid due to palpation Skin: General skin exam: no rashes or lesions noted Neuro: Speech: normal speech Motor exam (neuro): 5/5 motor strength present throughout Extrem: General: normal to inspection Psych: Mental Status: mental status grossly normal Objective Data Vital Signs Vital Signs: Vital Signs - 24 hr 07/04/23 16:00 07/04/23 22:00 07/05/23 04:51 Temperature 99.6 F 100 F H 98.6 F Pulse Rate 138 H 134 H Respiratory Rate 16 20 Blood Pressure 133/51 L 136/68 Pulse Oximetry 90 92 Oxygen Delivery Oxygen Flow Rate 07/05/23 04:48 07/05/23 04:52 07/05/23 06:00 Temperature 99.2 F Pulse Rate 127 H Respiratory Rate 18 Blood Pressure 130/66 Pulse Oximetry 84 L 95 94 Oxygen Delivery Room Air Nasal Cannula Oxygen Flow Rate 2 07/05/23 08:00 07/05/23 10:40 07/05/23 10:52 Temperature Pulse Rate Respiratory Rate Blood Pressure Pulse Oximetry 95 99 94 Oxygen Delivery Nasal Cannula Nasal Cannula Room Air Oxygen Flow Rate 2 2 Intake/Output Intake/Output: Intake & Output 07/02/23 07/03/23 07/04/23 07/05/23 23:59 23:59 23:59 23:59 Intake Total 5700 3680 6390 3630 Output Total 1450 550 Balance 4250 3130 6390 3630 Meds/Results Medications: Active Medications Generic Name Dose Route Start Last Admin Trade Name Freq PRN Reason Stop Dose Admin Sodium Chloride 1,000 mls @ 200 mls/hr 07/01/23 16:50 07/05/23 10:40 Normal Saline Iv IV CONT 200 mls/hr .Q5H SACHI Administration Metronidazole 500 mg in 100 mls @ 100 mls/hr 07/01/23 21:00 07/05/23 09:54 Flagyl 500 Mg/Iso Soln 100 Ml IVPB Infused Q6H SACHI Infusion Ceftriaxone Sodium 2
[2023-07-05] MEDS: ACETAMINOPHEN 325 MG TABLET 650 MG PO (14:58)
[2023-07-05 15:48] LABS: Influenza A QL RT-PCR Negative (Negative); Influenza B QL RT-PCR Negative (Negative); SARS-CoV-2 RNA PCR Negative (Negative)
[2023-07-05 16:02] LABS: Hematocrit 24.2 % (37.0-47.0); Hemoglobin 7.9 g/dL (12.0-15.0)
[2023-07-05] MEDS: PANTOPRAZOLE SODIUM IV 40 MG VIAL IV PUSH (20:11)
[2023-07-05] MEDS: SENNA/DOCUSATE SODIUM TABLET 2 TAB PO (20:11)
[2023-07-05] MEDS: cefTRIAXone 2 GM/NS 100 ML 2 GM/100 ML BAG IVPB (20:12)
[2023-07-06] VITALS (11 sets, daily range): BP systolic 111–157; BP diastolic 63–87; PULSE 113–125; RESP 13–32; TEMP 36.8–37.9; O2SAT 92–99
[2023-07-06] MEDS: MORPHINE SULFATE (*CRX) 4 MG/ML INJ IV PUSH (00:20)
[2023-07-06 01:02] LABS: IFOB Positive Control Positive; Immunochemical Fecal Occult Bl Positive (N)
[2023-07-06] MEDS: metroNIDAZOLE 500 MG/ISO 100ML 500 MG/100 ML BAG 100 MG IVPB ×4 (02:45→21:11)
[2023-07-06] MEDS: MORPHINE SULFATE (*CRX) 2 MG/ML INJ IV PUSH ×4 (02:45→20:23)
[2023-07-06] MEDS: SODIUM CHLORIDE 0.9% IV 1,000 ML 200 ML IV CONT ×2 (05:10→11:13)
[2023-07-06 06:26] LABS: Hematocrit 24.1 % (37.0-47.0); Hemoglobin 7.8 g/dL (12.0-15.0); Mean Corpuscular HGB Conc 32.4 g/dl (32-36); Mean Corpuscular Hemoglobin 29.2 pg (26-34); Mean Corpuscular Volume 90.3 fl (80-100); Platelet Count Result 186 k/mm3 (150-375); Red Blood Count 2.67 M/mm3 (4.2-5.4); Red Cell Distribution Width 14.1 % (11.5-14.5); White Blood Count 12.4 K/mm3 (4.5-10.0)
[2023-07-06] MEDS: PANTOPRAZOLE SODIUM IV 40 MG VIAL IV PUSH ×2 (07:57→20:11)
[2023-07-06] MEDS: ACETAMINOPHEN 325 MG TABLET 650 MG PO ×2 (07:57→20:10)
[2023-07-06 08:40] LABS: Alanine Aminotransferase 56 U/L (6-35); Albumin Level 2.3 g/dL (3.5-5.1); Alkaline Phosphatase 109 U/L (38-126); Anion Gap 4 mmol/L (8-16); Aspartate Amino Transferase 35 U/L (14-36); Bilirubin,Total 0.7 mg/dL (0.2-1.3); Blood Urea Nitrogen 5 mg/dL (7-17); Calcium 7.1 mg/dL (8.4-10.2); Carbon Dioxide 24 mmol/L (22-30); Chloride 107 mmol/L (98-107); Estimated CRCL calculation 146 ml/min; Estimated Glomerular Filt Rate > 60; Glucose 86 mg/dL (65-110); Potassium 3.2 mmol/L (3.4-5.0); Sodium 135 mmol/L (137-145)
--- NOTE | 2023-07-06 10:16 | PM.IMPN ---
Progress Note: A&P Assessment and Plan (1) Cholangitis: Code(s): K83.09 - Other cholangitis Status: Acute Assessment and Plan: treated successfully with ercp, sphincterotomy and balloon sweep Labs are better. Patient medically cleared for cholecystectomy (2) Cholelithiasis with choledocholithiasis: Code(s): K80.70 - Calculus of gallbladder and bile duct without cholecystitis without obstruction Status: Acute Assessment and Plan: s/p ercp surgery on board Possible cholecystectomy tomorrow (3) Acute biliary pancreatitis: Code(s): K85.10 - Biliary acute pancreatitis without necrosis or infection Status: Acute Assessment and Plan: On clear liquid diet abx and fluids (4) Elevated liver enzymes: Code(s): R74.8 - Abnormal levels of other serum enzymes Status: Acute Assessment and Plan: monitor trending down after ercp (5) Anemia: Code(s): D64.9 - Anemia, unspecified Status: Acute Assessment and Plan: Patient had melanotic stools yesterday. Hemoglobin dropped 2 g. Defer further plan to GI. Patient may need EGD Subjective Date/time seen: 07/06/23 10:16 Interval history: Abdominal pain is much better today. Patient had melanotic stool yesterday Review of Systems Review of Systems: All systems reviewed & are unremarkable except as noted in HPI and below Exam Narrative: - GENERAL: Pleasant woman in no acute distress. Well-nourished. - EYES: EOMI. Anicteric. - HENT: Moist mucous membranes. - LUNGS: Clear to auscultation bilaterally, no wheezing, rhonchi, or rales. - CARDIOVASCULAR: Regular rate and rhythm. No murmur. No JVD. - ABDOMEN: Soft, non-tender and non-distended. No palpable masses. - EXTREMITIES: No edema. Peripheral pulses 2+. Non-tender. - NEUROLOGIC: No focal neurological deficits. CN II-XII grossly intact. - PSYCHIATRIC: Awake, Alert and oriented x 3. Appropriate mood and affect. - SKIN: No rashes or lesions. Warm. - LYMPH: No cervical lymphadenopathy. Objective Data Vital Signs Vital Signs: Vital Signs - 24 hr 07/05/23 10:40 07/05/23 10:52 07/05/23 14:30 Temperature Pulse Rate Respiratory Rate Blood Pressure Pulse Oximetry 99 94 74 L Oxygen Delivery Nasal Cannula Room Air Room Air Oxygen Flow Rate 2 07/05/23 14:40 07/05/23 14:58 07/05/23 14:00 Temperature 100 F H 99.7 F H Pulse Rate 135 H Respiratory Rate 22 H Blood Pressure 137/61 Pulse Oximetry 93 93 Oxygen Delivery Nasal Cannula Oxygen Flow Rate 2 07/05/23 15:58 07/05/23 16:06 07/05/23 22:00 Temperature 98.4 F 98.4 F 98.4 F Pulse Rate 130 H 114 H Respiratory Rate 18 Blood Pressure 146/95 H Pulse Oximetry 95 97 Oxygen Delivery Oxygen Flow Rate 07/05/23 20:00 07/06/23 06:00 07/06/23 07:57 Temperature 99.6 F 99.7 F H Pulse Rate 122 H Respiratory Rate 20 Blood Pressure 154/78 H Pulse Oximetry 97 95 Oxygen Delivery Nasal Cannula Oxygen Flow Rate 2 07/06/23 08:00 07/06/23 08:57 Temperature 99.0 F Pulse Rate Respiratory Rate Blood Pressure Pulse Oximetry 95 Oxygen Delivery Nasal Cannula Oxygen Flow Rate 2 Intake/Output Intake/Output: Intake & Output 07/03/23 07/04/23 07/05/23 07/06/23 23:59 23:59 23:59 23:59 Intake Total 3680 / 3680 6390 / 6390 9230 / 9230 1675 / 1675 Output Total 550 / 550 Balance 3130 / 3130 6390 / 6390 9230 / 9230 1675 / 1675 Meds/Results Medications: Active Medications Generic Name Dose Route Start Last Admin Trade Name Freq PRN Reason Stop Dose Admin Acetaminophen 650 mg 07/05/23 14:51 07/06/23 07:57 Acetaminophen 325 Mg Tablet PO 650 mg Q6HR PRN Administration Mild Pain (1-3) or Fever Sodium Chloride 1,000 mls @ 200 mls/hr 07/01/23 16:50 07/06/23 05:10 Normal Saline Iv IV CONT 200 mls/hr .Q5H SACHI Administration Metronidazole 500 mg in 100 mls @ 100 mls/hr 07/01/23 21:00 09
--- NOTE | 2023-07-06 11:03 | PM.PNGS ---
Progress Note: A&P Assessment and Plan (1) Acute biliary pancreatitis: Code(s): K85.10 - Biliary acute pancreatitis without necrosis or infection Status: Acute Assessment and Plan: Will need interval cholecystectomy once medically cleared. We will continue to follow to plan optimal time for surgery. (2) Anemia: Code(s): D64.9 - Anemia, unspecified Status: Acute Assessment and Plan: Hgb dropped from 14 to 7.8 since admission and 2 grams since Wednesday when she noticed dark stools. She is symptomatic and may need transfusion. GI planning EGD today. Will hold off on surgery while undergoing further workup of the anemia. (3) Oxygen desaturation: Code(s): R09.02 - Hypoxemia Status: Acute Assessment and Plan: Hypoxia and dyspnea, still requiring 2 liters of oxygen. Could be related to her anemia. Plan for EGD today. May need transfused and potentially need further workup if does not improve. Holding off on surgery as mentioned above. Plan I have discussed the patient's case and plan of care with Dr. Guevara. Subjective Subjective Date/Time Seen: 07/06/23 09:33 Patient reports: still having pain, pain is less (Left-sided abdominal pain improved) and shortness of breath Interval history: Chart reviewed since last seen. Status post ERCP on 07/02. Patient seen this morning. She is still on 2 L nasal cannula and per nursing will desaturate when off oxygen. Patient reports feeling short of breath with activity. She also has nausea when getting up and going to the bathroom, but this quickly subsides. No vomiting. Still has some left-sided abdominal pain, but much improved from when she was admitted. She also reports some dark almost black stools for the last 2 days. Her hemoglobin has dropped from 14.2 on admission to 7.8 as of this morning. She has not received any blood products. No other complaints at this time. Review of Systems Review of Systems: All systems reviewed & are unremarkable except as noted in HPI and below Exam Const: General: comfortable and no acute distress Orientation/consciousness: patient oriented x3 GI: Inspection: non-distended GI Palp: Yes Soft to palpation, Yes Tenderness to palpation present (GI) (Tenderness in epigastrium and left upper quadrant), Yes Guarding due to palpation present (GI) (Voluntary guarding in left upper quadrant) and No Rebound tenderness present Auscultation: normal bowel sounds Skin: General skin exam: pallor Objective Data Vital Signs Vital Signs: Vital Signs - 24 hr 07/05/23 14:30 07/05/23 14:40 07/05/23 14:58 Temperature 100 F H Pulse Rate Respiratory Rate Blood Pressure Pulse Oximetry 74 L 93 Oxygen Delivery Room Air Nasal Cannula Oxygen Flow Rate 2 07/05/23 14:00 07/05/23 15:58 07/05/23 16:06 Temperature 99.7 F H 98.4 F 98.4 F Pulse Rate 135 H 130 H Respiratory Rate 22 H Blood Pressure 137/61 Pulse Oximetry 93 95 Oxygen Delivery Oxygen Flow Rate 07/05/23 22:00 07/05/23 20:00 07/06/23 06:00 Temperature 98.4 F 99.6 F Pulse Rate 114 H 122 H Respiratory Rate 18 20 Blood Pressure 146/95 H 154/78 H Pulse Oximetry 97 97 95 Oxygen Delivery Nasal Cannula Oxygen Flow Rate 2 07/06/23 07:57 07/06/23 08:00 07/06/23 08:57 Temperature 99.7 F H 99.0 F Pulse Rate Respiratory Rate Blood Pressure Pulse Oximetry 95 Oxygen Delivery Nasal Cannula Oxygen Flow Rate 2 Intake/Output Intake/Output: Intake & Output 07/03/23 07/04/23 07/05/23 07/06/23 23:59 23:59 23:59 23:59 Intake Total 3680 6390 9230 1675 Output Total 550 Balance 3130 6390 9230 1675 Meds/Results Medications: Active Medications Generic Name Dose Route Start Last Admin Trade Name Freq PRN Reason Stop Dose Admin Acetaminophen 650 mg 07/05/23 14:51 07/06/23 07:57 Acetaminophen 325 Mg Tablet PO 650 mg Q6HR PRN Administration Mild Pain (1-3) or Fever So
[2023-07-06] MEDS: LACTATED RINGERS 1,000 ML 150 ML IV CONT (11:57)
--- NOTE | 2023-07-06 11:58 | WPDANESEPPF ---
Anes - Initial Pre Proc Eval Procedure: Operation Date: 07/02/23 11:30 Proposed Procedures p Endoscopic Retro Cholangiopancreatogram - Juwan Walsh MD Operation Date: 07/05/23 09:30 Proposed Procedures p Laparoscopic Cholecystectomy - Brenda Guevara MD Operation Date: 07/06/23 13:00 Proposed Procedures p Esophagogastroduodenoscopy EGD - Juwan Walsh MD Operation Date: 07/06/23 13:00 Proposed Procedures p Laparoscopic Cholecystectomy - Brenda Guevara MD Date/Time: 07/06/23 11:58 Surgeon: Gerson Clarke MD Pre Op Diagnosis: rule out sphincterotomy bleed Patient Data Age: 22 Gender: F Height: 1.7 m Weight: 75 kg Last Vital Signs Temp 36.8 C 07/06/23 11:55 Pulse 113 H 07/06/23 11:55 Resp 18 07/06/23 11:55 BP 144/87 H 07/06/23 11:55 Pulse Ox 99 07/06/23 11:55 O2 Del Method Nasal Cannula 07/06/23 11:55 O2 Flow Rate 2 07/06/23 11:55 Allergies Allergy/AdvReac Type Severity Reaction Status Date / Time lactose AdvReac Gastrointestinal Verified 07/06/23 11:53 Upset Home Medications Medication Instructions Recorded Confirmed Type No Home Medications 07/01/23 07/01/23 History Laboratory Tests 07/05/23 07/05/23 07/05/23 15:04 15:54 23:56 WBC RBC Hgb 7.9 L g/dL (12.0-15.0) Hct 24.2 L % (37.0-47.0) MCV MCH MCHC RDW Plt Count MPV Sodium Potassium Chloride Carbon Dioxide Anion Gap BUN Creatinine Estim Creat Clear Calc Estimated GFR Glucose Calcium Total Bilirubin AST ALT Alkaline Phosphatase Total Protein Albumin Stl Occult Blood (IFOB) Positive H (N) Influenza A (RT-PCR) Negative (Negative) Influenza B (RT-PCR) Negative (Negative) SARS-CoV-2 RNA (RT-PCR) Negative (Negative) 07/06/23 05:54 WBC 12.4 H K/mm3 (4.5-10.0) RBC 2.67 L M/mm3 (4.2-5.4) Hgb 7.8 L g/dL (12.0-15.0) Hct 24.1 L % (37.0-47.0) MCV 90.3 fl (80-100) MCH 29.2 pg (26-34) MCHC 32.4 g/dl (32-36) RDW 14.1 % (11.5-14.5) Plt Count 186 k/mm3 (150-375) MPV 11.0 H fl (7.4-10.4) Sodium 135 L mmol/L (137-145) Potassium 3.2 L mmol/L (3.4-5.0) Chloride 107 mmol/L (98-107) Carbon Dioxide 24 mmol/L (22-30) Anion Gap 4 L mmol/L (8-16) BUN 5 L D mg/dL (7-17) Creatinine 0.50 L mg/dL (0.7-1.0) Estim Creat Clear Calc 146 ml/min Estimated GFR > 60 (59 - ) Glucose 86 mg/dL (65-110) Calcium 7.1 L mg/dL (8.4-10.2) Total Bilirubin 0.7 mg/dL (0.2-1.3) AST 35 U/L (14-36) ALT 56 H U/L (6-35) Alkaline Phosphatase 109 U/L (38-126) Total Protein 5.0 L g/dL (6.3-8.2) Albumin 2.3 L g/dL (3.5-5.1) Stl Occult Blood (IFOB) Influenza A (RT-PCR) Influenza B (RT-PCR) SARS-CoV-2 RNA (RT-PCR) Patient hx anesthesia problems: none Family hx anesthesia problems: none Results Review: All pre-operative results and documents have been reviewed as part of the pre-operative evaluation. [facility] Past Medical History Medical History Anemia Cholangitis Dehydration Elevated liver enzymes Nausea and vomiting in adult No pertinent past medical history SIRS (systemic inflammatory response syndrome) Surgical History Surgical History No pertinent past surgical history Social History Social History Smoking status: Never smoker Alcohol intake: never Substance u
[2023-07-06] MEDS: EPINEPHrine INJ 1 MG/10 ML SYRINGE 0.8 MG XX (13:14)
[2023-07-06] MEDS: ONDANSETRON INJ 4 MG/2 ML VIAL IV PUSH (14:03)
[2023-07-06] MEDS: diphenhydrAMINE HCl INJ 50 MG/ML VIAL 25 MG IV PUSH (14:07)
[2023-07-06] MEDS: SODIUM CHLORIDE 0.9% IV 1,000 ML 100 ML IV CONT ×2 (20:09→20:11)
[2023-07-06] MEDS: SENNA/DOCUSATE SODIUM TABLET 2 TAB PO (20:11)
[2023-07-06] MEDS: cefTRIAXone 2 GM/NS 100 ML 2 GM/100 ML BAG IVPB (20:23)
--- NOTE | 2023-07-06 21:29 | PC.NURSE ---
Pt and mother c/o new swelling to BLE. Edema is nonpitting. IVF continue at 200mL/hr. SCDs placed. Call placed to hospitalist regarding edema. Waiting for new orders.
--- NOTE | 2023-07-06 21:42 | PM.EVENT ---
Event Note Event Note Event Note: The patient has noticed swelling in her legs the last couple of days. RN called me today with concerns that she may be volume overloaded. She is swollen and has gained quite a bit of weight. She denies shortness of breath. Chart reviewed. It looks like she was admitted through the emergency department on 07/01/2023 and since her admission she has received a total of 22 L of fluid, not including those those fluid she received with antibiotics. IV fluids will be discontinued. Consider a few days of diuretics depending on how she does following her procedure tomorrow.
[2023-07-07] MEDS: MORPHINE SULFATE (*CRX) 2 MG/ML INJ IV PUSH ×2 (00:04→04:27)
[2023-07-07] MEDS: metroNIDAZOLE 500 MG/ISO 100ML 500 MG/100 ML BAG 100 MG IVPB ×4 (03:02→21:03)
[2023-07-07 05:30] VITALS: BP 137/74; PULSE 112; RESP 14; TEMP 37.4; O2SAT 97
[2023-07-07 09:40] VITALS: O2SAT 98
[2023-07-07] MEDS: PANTOPRAZOLE SODIUM IV 40 MG VIAL IV PUSH ×2 (09:46→20:23)
--- NOTE | 2023-07-07 12:25 | PM.PNGS ---
Progress Note: A&P Assessment and Plan (1) Acute biliary pancreatitis: Code(s): K85.10 - Biliary acute pancreatitis without necrosis or infection Status: Acute Assessment and Plan: Discussed treatment options with the patient today. We have been waiting on medical optimization prior to proceeding with interval cholecystectomy. She is still having issues with hypoxia, fluid overload, anemia, and continues to have intermittent fevers. The fevers could be related to her gallbladder, as well as other possible etiologies. We recommend proceeding with placement of a cholecystostomy tube in Radiology. This would treat the cholecystitis while she continues with medical treatment of her other medical issues. If fevers persist, then she needs further workup for other potential sources. Continue IV antibiotics. (2) Anemia: Code(s): D64.9 - Anemia, unspecified Status: Acute Assessment and Plan: S/p EGD with findings of an ulcer at the area of the sphincterotomy during ERCP. No labs today. Will obtain labs, transfuse as needed. (3) Oxygen desaturation: Code(s): R09.02 - Hypoxemia Status: Acute Assessment and Plan: We have been holding off on surgery due to issues with hypoxia and workup for her anemia. Will repeat labs today. Since she is still not medically optimized and continues to have intermittent fevers, will proceed with cholecystostomy tube placement. Plan I have discussed the patient's case and plan of care with Dr. Guevara. Subjective Subjective Date/Time Seen: 07/07/23 12:25 Patient reports: no new complaints, tolerating liquids well, flatus, bowel movement (today) and fever (temp 100.3F last night) Interval history: Patient feeling about the same today. Still with some discomfort in the LUQ. No nausea, or vomiting. She tolerated full liquids last night. Still with a fever last night and WBC count yesterday was 12k. No labs yet today, will order. Overnight, Hospitalist discontinued IV fluids as she appeared fluid overloaded. She complaints of some edema of her bilateral upper and lower extremities. She is still on 1-2 liters of O2 nasal cannula. Has some shortness of breath with ambulating, but no shortness of breath at rest. No cough or sputum production. No chest pain or leg pain. Exam Const: General: comfortable and no acute distress Orientation/consciousness: patient oriented x3 Resp: Effort & Inspection: normal respiratory effort Auscultation: clear to auscultation bilaterally Cardio: Rate: tachycardic Rhythm: regular rhythm GI: Inspection: non-distended GI Palp: Yes Soft to palpation, Yes Tenderness to palpation present (GI) (RUQ and epigastric area), No Guarding due to palpation present (GI) and No Rebound tenderness present Auscultation: normal bowel sounds Skin: General skin exam: pallor Extrem: General: no calf tenderness Right upper extremity: edema (bilateral 2+ diffuse nonpitting edema of upper extremities) Left upper extremity: edema Right lower extremity: no edema Left lower extremity: no edema Psych: Mental Status: mental status grossly normal Insight: Good insight present (Psych) Objective Data Vital Signs Vital Signs: Vital Signs - 24 hr 07/06/23 13:19 07/06/23 13:29 07/06/23 13:39 Temperature Pulse Rate 125 H 120 H 119 H Respiratory Rate 32 H 19 22 H Blood Pressure 111/63 129/82 136/86 Pulse Oximetry 92 93 93 Oxygen Delivery Nasal Cannula Nasal Cannula Room Air Oxygen Flow Rate 2 2 07/06/23 14:00 07/06/23 20:10 07/06/23 21:51 Temperature 98.9 F 100.3 F H 100.3 F H Pulse Rate 121 H 122 H Respiratory Rate 22 H 13 Blood Pressure 135/84 157/85 H Pulse Oximetry 93 98 Oxygen Delivery Oxygen Flow Rate 07/06/23 20:00 07/07/23 05:30 07/07/23 09:40 Temperature 99.3 F Pulse Rate 112 H Respiratory Rate 14 Blood Pressure 137/74 Pulse Oximetry 97 98 Oxygen Delivery Room Air Nasal Cannula Oxygen Flow Rate 2 I
--- NOTE | 2023-07-07 13:05 | PM.IMPN ---
Progress Note: A&P Assessment and Plan (1) Cholangitis: Code(s): K83.09 - Other cholangitis Status: Acute Assessment and Plan: pt sp ercp, sphincterotomy and balloon sweep (2) Cholelithiasis with choledocholithiasis: Code(s): K80.70 - Calculus of gallbladder and bile duct without cholecystitis without obstruction Status: Acute Assessment and Plan: s/p ercp surgery on board medically unwell or lap jaent surgery team have decided on They have decided to will proceed with cholecystostomy tube placement due to medical condition. (3) Acute biliary pancreatitis: Code(s): K85.10 - Biliary acute pancreatitis without necrosis or infection Status: Acute Assessment and Plan: npo with iv fluids (4) Elevated liver enzymes: Code(s): R74.8 - Abnormal levels of other serum enzymes Status: Acute Assessment and Plan: monitor (5) Anemia: Code(s): D64.9 - Anemia, unspecified Status: Acute Assessment and Plan: sp EGD showing [facility] gi team rounding continue to watch hb levels no melena today Subjective Date/time seen: 07/07/23 13:05 Interval history: 22-year-old female with no past medical history presents to the ED complaints of nausea/vomiting/abdominal pain for last 5 days.? Patient has no history of symptoms this severe before.? No family history abdominal pathologies.? Patient has not had gallbladder attacks in the past. Unfortunately could not have her scheduled lap chol on wednesday due to hypoxia CXR shows- pneumonia pt started on oxygen pt is on 2 liters presently of oxygen started on iv ABX. PT had EGD yesterday showing [facility] under GI Surgery rounding awaiting for improvement in hypoxia and low grade fevers They have decided to will proceed with cholecystostomy tube placement due to medical condition. Review of Systems Review of Systems: sob+ low grade fevers Exam Narrative: - GENERAL: Pleasant woman in no acute distress. Well-nourished. - LUNGS: Clear to auscultation bilaterally, no wheezing, rhonchi, or rales. - CARDIOVASCULAR: Regular rate and rhythm. No murmur. No JVD. - ABDOMEN: Soft, non-tender and non-distended. No palpable masses. - EXTREMITIES: No edema. Peripheral pulses 2+. Non-tender. - NEUROLOGIC: No focal neurological deficits. CN II-XII grossly intact. - PSYCHIATRIC: Awake, Alert and oriented x 3. Appropriate mood and affect. - SKIN: No rashes or lesions. Warm. - LYMPH: No cervical lymphadenopathy. Objective Data Vital Signs Vital Signs: Vital Signs - 24 hr 07/06/23 13:19 07/06/23 13:29 07/06/23 13:39 Temperature Pulse Rate 125 H 120 H 119 H Respiratory Rate 32 H 19 22 H Blood Pressure 111/63 129/82 136/86 Pulse Oximetry 92 93 93 Oxygen Delivery Nasal Cannula Nasal Cannula Room Air Oxygen Flow Rate 2 2 07/06/23 14:00 07/06/23 20:10 07/06/23 21:51 Temperature 37.2 C 37.9 C H 37.9 C H Pulse Rate 121 H 122 H Respiratory Rate 22 H 13 Blood Pressure 135/84 157/85 H Pulse Oximetry 93 98 Oxygen Delivery Oxygen Flow Rate 07/06/23 20:00 07/07/23 05:30 07/07/23 09:40 Temperature 37.4 C Pulse Rate 112 H Respiratory Rate 14 Blood Pressure 137/74 Pulse Oximetry 97 98 Oxygen Delivery Room Air Nasal Cannula Oxygen Flow Rate 2 Intake/Output Intake/Output: Intake & Output 07/04/23 07/05/23 07/06/23 07/07/23 23:59 23:59 23:59 23:59 Intake Total 6390 9330 5865 440 Balance 6390 9330 5865 440 Meds/Results Medications: Active Medications Generic Name Dose Route Start Last Admin Trade Name Freq PRN Reason Stop Dose Admin Acetaminophen 650 mg 07/05/23 14:51 07/06/23 20:10 Acetaminophen 325 Mg Tablet PO 650 mg Q6HR PRN Administration Mild Pain (1-3) or Fever Metronidazole 500 mg in 100 mls @ 100 mls/hr 07/01/23 21:00 07/07/23 10:46 Flagyl 500 Mg/Iso Soln 100 Ml IVPB Infused Q6H SACHI Infusion Ceftriaxone Sodium 2 gm in 100
[2023-07-07 13:27] LABS: Hematocrit 25.7 % (37.0-47.0); Hemoglobin 8.3 g/dL (12.0-15.0); Mean Corpuscular HGB Conc 32.3 g/dl (32-36); Mean Corpuscular Hemoglobin 29.1 pg (26-34); Mean Corpuscular Volume 90.2 fl (80-100); Mean Platelet Volume 10.1 fl (7.4-10.4); Platelet Count Result 227 k/mm3 (150-375); Red Blood Count 2.85 M/mm3 (4.2-5.4); White Blood Count 11.1 K/mm3 (4.5-10.0)
--- NOTE | 2023-07-07 13:36 | WPDANESPN ---
Anes - Prog Note Post-Op Date/Time: 07/07/23 13:36 Cardiovascular status: other (anemic. VSS) Respiratory status: normal Airway patency: baseline Mental status: baseline Post-Op hydration status: normal Vital Signs: Last Vital Signs Temp 37.4 C 07/07/23 05:30 Pulse 112 H 07/07/23 05:30 Resp 14 07/07/23 05:30 BP 137/74 07/07/23 05:30 Pulse Ox 98 07/07/23 09:40 O2 Del Method Nasal Cannula 07/07/23 09:40 O2 Flow Rate 2 07/07/23 09:40 Pain Score (VAS): 0/10 I/O: Intake & Output 07/06/23 07/07/23 07/07/23 23:59 07:59 15:59 Intake Total 2340 340 100 Balance 2340 340 100 Laboratory Tests 07/07/23 13:18 07/07/23 13:18 WBC 11.1 H RBC 2.85 L Hgb 8.3 L Hct 25.7 L MCV 90.2 MCH 29.1 MCHC 32.3 RDW 14.0 Plt Count 227 MPV 10.1 Sodium Pending Potassium Pending Chloride Pending Carbon Dioxide Pending Anion Gap Pending BUN Pending Creatinine Pending Estim Creat Clear Calc Pending Estimated GFR Pending Glucose Pending Calcium Pending Total Bilirubin Pending AST Pending ALT Pending Alkaline Phosphatase Pending Total Protein Pending Albumin Pending Lipase Pending Post-procedural complaints: none Patient Feedback: Patient satisfied with anesthetic care. Other Findings: patient reports she is satisfied with the anesthesia care she received.
[2023-07-07 13:43] LABS: Alanine Aminotransferase 45 U/L (6-35); Albumin Level 2.7 g/dL (3.5-5.1); Alkaline Phosphatase 69 U/L (38-126); Anion Gap 8 mmol/L (8-16); Aspartate Amino Transferase 29 U/L (14-36); Bilirubin,Total 0.7 mg/dL (0.2-1.3); Blood Urea Nitrogen 5 mg/dL (7-17); Calcium 7.5 mg/dL (8.4-10.2); Carbon Dioxide 23 mmol/L (22-30); Chloride 105 mmol/L (98-107); Estimated CRCL calculation 175 ml/min; Estimated Glomerular Filt Rate > 60; Glucose 85 mg/dL (65-110); Lipase 216 U/L (23-300); Potassium 2.9 mmol/L (3.4-5.0); Sodium 136 mmol/L (137-145)
[2023-07-07 14:00] VITALS: BP 139/83; PULSE 110; RESP 18; TEMP 37.4; O2SAT 98
--- NOTE | 2023-07-07 14:11 | WPDGIPROGNO ---
Progress Note: A&P Assessment and Plan (1) Acute blood loss anemia: Code(s): D62 - Acute posthemorrhagic anemia Status: Acute Assessment and Plan: she has received over 20 L fluids since admission but also had dark stools after ercp, egd yesterday noted hematin at sphincterotomy site- no active bleeding but treated with epi now h/h stable ~ 8 continue with protonix (2) Cholelithiasis with choledocholithiasis: Code(s): K80.70 - Calculus of gallbladder and bile duct without cholecystitis without obstruction Status: Acute Assessment and Plan: treated successfully with ercp, normalization of bili and overall better (3) Acute biliary pancreatitis: Code(s): K85.10 - Biliary acute pancreatitis without necrosis or infection Status: Acute Assessment and Plan: surgery on board (4) SIRS (systemic inflammatory response syndrome): Code(s): R65.10 - Systemic inflammatory response syndrome (SIRS) of non-infectious origin without acute organ dysfunction Status: Acute Assessment and Plan: treated, had cholangitis (5) Elevated liver enzymes: Code(s): R74.8 - Abnormal levels of other serum enzymes Status: Acute Assessment and Plan: improved (6) Cholangitis: Code(s): K83.09 - Other cholangitis Status: Acute Subjective Date/time seen: 07/07/23 14:11 Interval history: yesterday egd, noted expected ulcer at sphincterotomy site with hematin but no active bleeding, treated with epi overall better, low grade fever Review of Systems Review of Systems: All systems reviewed & are unremarkable except as noted in HPI and below Exam Const: General: comfortable and no acute distress Orientation/consciousness: patient oriented x3 HENMT: Face/Nose/Sinus: Normal nares present Eyes: Sclera: sclerae normal Neck: Neck: supple Resp: Effort & Inspection: normal respiratory effort Auscultation: clear to auscultation bilaterally Cardio: Rate: tachycardic Rhythm: regular rhythm GI: Inspection: non-distended GI Palp: Yes Soft to palpation, Yes Tenderness to palpation present (GI) (RUQ and epigastric area), No Guarding due to palpation present (GI) and No Rebound tenderness present Auscultation: normal bowel sounds Skin: General skin exam: pallor Neuro: Speech: normal speech Motor exam (neuro): 5/5 motor strength present throughout Extrem: General: no calf tenderness Right upper extremity: edema (bilateral 2+ diffuse nonpitting edema of upper extremities) Left upper extremity: edema Right lower extremity: no edema Left lower extremity: no edema Psych: Mental Status: mental status grossly normal Insight: Good insight present (Psych) Objective Data Vital Signs Vital Signs: Vital Signs - 24 hr 07/06/23 20:10 07/06/23 21:51 07/06/23 20:00 Temperature 100.3 F H 100.3 F H Pulse Rate 122 H Respiratory Rate 13 Blood Pressure 157/85 H Pulse Oximetry 98 Oxygen Delivery Room Air Oxygen Flow Rate 07/07/23 05:30 07/07/23 09:40 Temperature 99.3 F Pulse Rate 112 H Respiratory Rate 14 Blood Pressure 137/74 Pulse Oximetry 97 98 Oxygen Delivery Nasal Cannula Oxygen Flow Rate 2 Intake/Output Intake/Output: Intake & Output 07/04/23 07/05/23 07/06/23 07/07/23 23:59 23:59 23:59 23:59 Intake Total 6390 9330 5865 440 Balance 6390 9330 5865 440 Meds/Results Medications: Active Medications Generic Name Dose Route Start Last Admin Trade Name Freq PRN Reason Stop Dose Admin Acetaminophen 650 mg 07/05/23 14:51 07/06/23 20:10 Acetaminophen 325 Mg Tablet PO 650 mg Q6HR PRN Administration Mild Pain (1-3) or Fever Metronidazole 500 mg in 100 mls @ 100 mls/hr 07/01/23 21:00 07/07/23 10:46 Flagyl 500 Mg/Iso Soln 100 Ml IVPB Infused Q6H SACHI Infusion Ceftriaxone Sodium 2 gm in 100 mls @ 200 mls/hr 07/01/23 20:00 07/06/23 20:23 Rocephin 2 Gm/Ns 100 Ml IVPB 200 mls/hr
[2023-07-07 16:35] VITALS: O2SAT 96
[2023-07-07] MEDS: ACETAMINOPHEN 325 MG TABLET 650 MG PO (17:36)
[2023-07-07] MEDS: cefTRIAXone 2 GM/NS 100 ML 2 GM/100 ML BAG IVPB (20:23)
[2023-07-07] MEDS: SENNA/DOCUSATE SODIUM TABLET 2 TAB PO (21:02)
[2023-07-07 21:21] VITALS: BP 147/84; PULSE 118; RESP 14; TEMP 37.3; O2SAT 95
[2023-07-08] VITALS (7 sets, daily range): BP systolic 136–145; BP diastolic 65–79; PULSE 81–110; RESP 13–18; TEMP 36.8–38.3; O2SAT 93–97; BMI 32.0
[2023-07-08] MEDS: metroNIDAZOLE 500 MG/ISO 100ML 500 MG/100 ML BAG 100 MG IVPB ×3 (03:05→15:25)
[2023-07-08 06:47] LABS: Anion Gap 7 mmol/L (8-16); Blood Urea Nitrogen 5 mg/dL (7-17); Calcium 7.4 mg/dL (8.4-10.2); Carbon Dioxide 23 mmol/L (22-30); Chloride 106 mmol/L (98-107); Estimated CRCL calculation 175 ml/min; Estimated Glomerular Filt Rate > 60; Glucose 99 mg/dL (65-110); Potassium 2.9 mmol/L (3.4-5.0); Sodium 136 mmol/L (137-145)
[2023-07-08 07:10] LABS: Hematocrit 23.7 % (37.0-47.0); Hemoglobin 7.7 g/dL (12.0-15.0); Mean Corpuscular HGB Conc 32.5 g/dl (32-36); Mean Corpuscular Hemoglobin 28.9 pg (26-34); Mean Corpuscular Volume 89.1 fl (80-100); Platelet Count Result 247 k/mm3 (150-375); Red Blood Count 2.66 M/mm3 (4.2-5.4); White Blood Count 12.3 K/mm3 (4.5-10.0)
[2023-07-08] MEDS: PANTOPRAZOLE SODIUM IV 40 MG VIAL IV PUSH ×2 (08:49→21:12)
[2023-07-08] MEDS: POTASSIUM CHLORIDE 20 MEQ ER TABLET 40 MEQ PO (08:49)
--- NOTE | 2023-07-08 12:18 | PM.PNGS ---
Progress Note: A&P Assessment and Plan (1) Acute biliary pancreatitis: Code(s): K85.10 - Biliary acute pancreatitis without necrosis or infection Status: Acute Assessment and Plan: Cholecystostomy tube deferred yesterday as patient went for placement and ultrasound showed the gallbladder contracted and was no longer distended with significant decrease in sludge likely related to the resolution of prior common duct occlusion. Discussed with patient today options moving forward of timing of interval cholecystectomy. She is tolerating a low fat diet and showing some signs of improvement. She is still dealing with hypokalemia, anemia, and some low grade fevers. Will plan to schedule her interval cholecystectomy as an outpatient in the near future if she is able to be discharge in the next few days. This will allow time for her medical issues to be treated and have her medically optimized for surgery. She will have to follow a low fat diet in the interim. Patient agrees with this plan, will continue to follow. Continue antibiotics. (2) Anemia: Code(s): D64.9 - Anemia, unspecified Status: Acute Assessment and Plan: S/p EGD 07/06 with findings of an ulcer at the area of the sphincterotomy during ERCP, epi injected. Hgb 7.7 today. Would like patient's hemoglobin at least above 8 prior to surgery that will likely be scheduled as an outpatient. See plan above. (3) Oxygen desaturation: Code(s): R09.02 - Hypoxemia Status: Acute Assessment and Plan: Weaned off O2, improving. Plan I have discussed the patient's case and plan of care with Dr. Guevara. Subjective Subjective Date/Time Seen: 07/08/23 12:19 Patient reports: no new complaints, flatus and bowel movement Interval history: Patient feeling about the same today. Denies any abdominal pain at this time. She has been weaned off of oxygen. Still with slight low-grade fever overnight. Tolerating a low-fat diet. No nausea or vomiting. Review of Systems Review of Systems: ROS unchanged except as noted above Exam Const: General: comfortable, no acute distress and awake Orientation/consciousness: patient oriented x3 GI: Inspection: non-distended GI Palp: Yes Soft to palpation, Yes Tenderness to palpation present (GI) (across upper abdomen, unchanged), No Guarding due to palpation present (GI) and No Rebound tenderness present Auscultation: normal bowel sounds Extrem: Right upper extremity: edema (bilateral 2+ diffuse nonpitting edema of upper extremities) Left upper extremity: edema Right lower extremity: no edema Left lower extremity: no edema Psych: Mental Status: mental status grossly normal Insight: Good insight present (Psych) Objective Data Vital Signs Vital Signs: Vital Signs - 24 hr 07/07/23 14:00 07/07/23 16:35 07/07/23 21:21 Temperature 99.3 F 99.2 F Pulse Rate 110 H 118 H Respiratory Rate 18 14 Blood Pressure 139/83 147/84 H Pulse Oximetry 98 96 95 Oxygen Delivery Room Air 07/08/23 05:23 07/08/23 08:00 Temperature 99.1 F Pulse Rate 110 H Respiratory Rate 14 Blood Pressure 136/79 Pulse Oximetry 93 93 Oxygen Delivery Room Air Intake/Output Intake/Output: Intake & Output 07/05/23 07/06/23 07/07/23 07/08/23 23:59 23:59 23:59 23:59 Intake Total 9330 5965 976 718 Output Total 2 Balance 9330 5965 974 718 Meds/Results Medications: Active Medications Generic Name Dose Route Start Last Admin Trade Name Freq PRN Reason Stop Dose Admin Acetaminophen 650 mg 07/05/23 14:51 07/07/23 17:36 Acetaminophen 325 Mg Tablet PO 650 mg Q6HR PRN Administration Mild Pain (1-3) or Fever Hydrocodone Bitart/Acetaminophen 1 tab 07/08/23 11:35 Hydrocodone/Acetaminophen (*Crx) 5-325 Mg Tablet PO Q4H PRN Pain Rated 4-6 Metronidazole 500 mg in 100 mls @ 100 mls/hr 07/01/23 21:00 07/08/23 08:49 Flagyl 500 Mg/Iso Soln 100 Ml IVPB 100 mls/hr Q6H SACHI
--- NOTE | 2023-07-08 14:43 | PM.IMPN ---
Progress Note: A&P Assessment and Plan (1) Cholangitis: Code(s): K83.09 - Other cholangitis Status: Acute (2) Cholelithiasis with choledocholithiasis: Code(s): K80.70 - Calculus of gallbladder and bile duct without cholecystitis without obstruction Status: Acute (3) Acute biliary pancreatitis: Code(s): K85.10 - Biliary acute pancreatitis without necrosis or infection Status: Acute (4) Elevated liver enzymes: Code(s): R74.8 - Abnormal levels of other serum enzymes Status: Acute (5) Anemia: Code(s): D64.9 - Anemia, unspecified Status: Acute Plan 22-year-old female with no past medical history presents to the ED complaints of nausea/vomiting/abdominal pain for last 5 days.? Patient has no history of symptoms this severe before.? No family history abdominal pathologies.? Patient has not had gallbladder attacks in the past. I had elevated LFTs on admission with elevated lipase more than 40,000. Since admission these levels has improved. Worsening anemia with a course with FOBT positive. Hepatitis panel has been negative. Initial chest x-ray with no acute cardiopulmonary disease. Ultrasound abdomen with dilated common bile duct sludge and stones in the gallbladder and mild gallbladder wall thickening and free fluid in the right upper quadrant. Findings could reflect distal common bile duct obstruction and/or acute cholecystitis. Patient underwent ERCP on 07/02/2023. Subsequent plans for our laparoscopic cholecystectomy was held due to hypoxia. Chest x-ray on 07/05/2023 with bibasilar airspace opacities left greater than right consistent with atelectasis versus pneumonia. General surgery was consulted and plan for cholecystostomy tube placement. Ultrasound done on 07/07/2023 showed some residual wall thickening within the gallbladder likely related to acute cholecystitis but also due to improvement in the prior distention the gallbladder which measured be approximately 3.8 cm in maximal diameter currently 1.8 cm maximum diameter. There has also been significant decrease in amount of hypoechoic sludge in the dependent portion the gallbladder. This is likely due to resolution of prior obstruction of the common bile duct post ERCP on sleeping of likely obstructing stones from the common bile duct with subsequent significant improvement in the condition the patient including significant improvement in both the elevated liver enzymes and elevated white blood cell count. Percutaneous cholecystostomy tube placement was deferred. EGD performed for worsening anemia showed expected ulcer SP enterotomy site with hematin but no active bleeding. Treated with epi. General surgery planning to do cholecystostomy as an outpatient basis and has been started on oral diet which she is tolerating well. She is still feels short of breath and most likely has congestion from all the fluid resuscitation she received through her course. LFTs and lipase has normalized now. Will recheck a chest x-ray today. Will start diuresis are gently of the next few days. Subjective Date/time seen: 07/08/23 14:43 Interval history: 22-year-old female with no past medical history presents to the ED complaints of nausea/vomiting/abdominal pain for last 5 days.? Patient has no history of symptoms this severe before.? No family history abdominal pathologies.? Patient has not had gallbladder attacks in the past. I had elevated LFTs on admission with elevated lipase more than 40,000. Since admission these levels has improved. Worsening anemia with a course with FOBT positive. Hepatitis panel has been negative. Initial chest x-ray with no acute cardiopulmonary disease. Ultrasound abdomen with dilated common bile duct sludge and stones in the gallbladder and mild gallbladder wall thickening and free fluid in the right upper quadrant. Findings could reflect distal common bile duct obstruction and/or acute cholecystitis. Patient und
[2023-07-08] MEDS: POTASSIUM CHLORIDE 20 MEQ PACKET (FOR LIQUID) 40 MEQ PO (15:25)
[2023-07-08] MEDS: FUROSEMIDE INJ 40 MG/4 ML VIAL IV PUSH (15:25)
[2023-07-08] MEDS: ACETAMINOPHEN 325 MG TABLET 650 MG PO (15:28)
--- NOTE | 2023-07-08 16:32 | PC.NURSE ---
Dr Buckner notified of temp 100.9.
[2023-07-08] MEDS: HYDROcodone/acetaminophen (*CRX) 5-325 MG TABLET 1 TAB PO (16:54)
--- NOTE | 2023-07-08 16:57 | WPDGIPROGNO ---
Progress Note: A&P Assessment and Plan (1) Acute blood loss anemia: Code(s): D62 - Acute posthemorrhagic anemia Status: Acute Assessment and Plan: egd noted hematin at sphincterotomy site- no active bleeding but treated with epi h/h stable ~ 8 continue with protonix (2) Cholelithiasis with choledocholithiasis: Code(s): K80.70 - Calculus of gallbladder and bile duct without cholecystitis without obstruction Status: Acute Assessment and Plan: treated successfully with ercp, normalization of bili and overall better abd us revealed improved of GB edema tolerating diet most likely lap janet as outpatient once overall clinical status improves (3) Acute biliary pancreatitis: Code(s): K85.10 - Biliary acute pancreatitis without necrosis or infection Status: Acute Assessment and Plan: this has improved normal bili (4) SIRS (systemic inflammatory response syndrome): Code(s): R65.10 - Systemic inflammatory response syndrome (SIRS) of non-infectious origin without acute organ dysfunction Status: Acute Assessment and Plan: treated, had cholangitis now on oral abx (5) Elevated liver enzymes: Code(s): R74.8 - Abnormal levels of other serum enzymes Status: Acute Assessment and Plan: improved (6) Cholangitis: Code(s): K83.09 - Other cholangitis Status: Acute Assessment and Plan: treated Subjective Date/time seen: 07/08/23 16:57 Interval history: no gib, had normal BM still with pain but this has improved Review of Systems Review of Systems: All systems reviewed & are unremarkable except as noted in HPI and below Exam Const: General: comfortable and no acute distress Orientation/consciousness: patient oriented x3 HENMT: Face/Nose/Sinus: Normal nares present Eyes: Sclera: sclerae normal Neck: Neck: supple Resp: Effort & Inspection: normal respiratory effort Auscultation: clear to auscultation bilaterally Cardio: Rhythm: regular rhythm GI: Inspection: non-distended GI Palp: Yes Soft to palpation, Yes Tenderness to palpation present (GI) (RUQ and epigastric area), No Guarding due to palpation present (GI) and No Rebound tenderness present Auscultation: normal bowel sounds Skin: General skin exam: pallor Neuro: Speech: normal speech Motor exam (neuro): 5/5 motor strength present throughout Extrem: General: no calf tenderness Right upper extremity: edema (bilateral 2+ diffuse nonpitting edema of upper extremities) Left upper extremity: edema Right lower extremity: no edema Left lower extremity: no edema Psych: Mental Status: mental status grossly normal Insight: Good insight present (Psych) Objective Data Vital Signs Vital Signs: Vital Signs - 24 hr 07/07/23 21:21 07/08/23 05:23 07/08/23 08:00 Temperature 99.2 F 99.1 F Pulse Rate 118 H 110 H Respiratory Rate 14 14 Blood Pressure 147/84 H 136/79 Pulse Oximetry 95 93 93 Oxygen Delivery Room Air 07/08/23 14:00 07/08/23 15:24 07/08/23 15:28 Temperature 100.0 F H 100.9 F H 100.9 F H Pulse Rate 107 H Respiratory Rate 18 Blood Pressure 138/78 Pulse Oximetry 96 Oxygen Delivery 07/08/23 16:25 Temperature 99.6 F Pulse Rate Respiratory Rate Blood Pressure Pulse Oximetry Oxygen Delivery Intake/Output Intake/Output: Intake & Output 07/05/23 07/06/23 07/07/23 07/08/23 23:59 23:59 23:59 23:59 Intake Total 9330 5965 976 1058 Output Total 2 800 Balance 9330 5965 974 258 Meds/Results Medications: Active Medications Generic Name Dose Route Start Last Admin Trade Name Freq PRN Reason Stop Dose Admin Acetaminophen 650 mg 07/05/23 14:51 07/08/23 15:28 Acetaminophen 325 Mg Tablet PO 650 mg Q6HR PRN Administration Mild Pain (1-3) or Fever Hydrocodone Bitart/Acetaminophen 1 tab 07/08/23 11:35 07/08/23 16:54 Hydrocodone/Acetaminophen (*Crx) 5-325 Mg Tablet PO 1 tab Q
[2023-07-08] MEDS: AMOXICILLIN/CLAVULANATE K 875-125 MG TAB 1 TABLET PO (21:12)
[2023-07-08] MEDS: SENNA/DOCUSATE SODIUM TABLET 2 TAB PO (21:12)
[2023-07-09 05:25] VITALS: BP 137/78; PULSE 110; RESP 12; TEMP 36.9; O2SAT 95
[2023-07-09 05:54] LABS: Basophils Absolute Auto 0.1 K/mm3 (0.0-0.1); Basophils Percent Auto 0.4 % (0.2-1.2); Eosinophils Absolute Auto 0.1 K/mm3 (0-0.3); Eosinophils Percent Auto 0.8 % (0-4.4); Hematocrit 24.2 % (37.0-47.0); Immature Granulocyte Absolute 0.51 K/mm3 (0.00-0.031); Immature Granulocyte Percent A 3.8 % (0-0.5); Lymphocytes Absolute Auto 2.05 K/mm3 (0.9-3.2); Lymphocytes Percent Auto 15.4 % (18.3-44.2); Mean Corpuscular HGB Conc 33.1 g/dl (32-36); Mean Corpuscular Hemoglobin 29.4 pg (26-34); Mean Platelet Volume 10.6 fl (7.4-10.4); Monocytes Absolute Auto 1.1 K/mm3 (0.1-0.6); Neutrophils Absolute Auto 9.5 K/mm3 (1.3-6.7); Neutrophils Percent Auto 71.6 % (45.5-73.1); Platelet Count Result 270 k/mm3 (150-375); Red Blood Count 2.72 M/mm3 (4.2-5.4); Red Cell Distribution Width 13.8 % (11.5-14.5); White Blood Count 13.3 K/mm3 (4.5-10.0)
[2023-07-09 06:10] LABS: Alanine Aminotransferase 32 U/L (6-35); Albumin Level 2.8 g/dL (3.5-5.1); Alkaline Phosphatase 66 U/L (38-126); Anion Gap 5 mmol/L (8-16); Aspartate Amino Transferase 29 U/L (14-36); Bilirubin,Total 0.6 mg/dL (0.2-1.3); Blood Urea Nitrogen 6 mg/dL (7-17); Calcium 7.7 mg/dL (8.4-10.2); Carbon Dioxide 23 mmol/L (22-30); Chloride 108 mmol/L (98-107); Estimated CRCL calculation 175 ml/min; Estimated Glomerular Filt Rate > 60; Glucose 97 mg/dL (65-110); Potassium 3.7 mmol/L (3.4-5.0); Sodium 136 mmol/L (137-145)
[2023-07-09] MEDS: ACETAMINOPHEN 325 MG TABLET 650 MG PO ×2 (08:15→20:30)
[2023-07-09] MEDS: AMOXICILLIN/CLAVULANATE K 875-125 MG TAB 1 TABLET PO ×2 (08:15→20:30)
[2023-07-09] MEDS: polyethylene glycoL 3350 17 GM POWD.PACK PO (08:15)
[2023-07-09] MEDS: PANTOPRAZOLE SODIUM IV 40 MG VIAL IV PUSH ×2 (08:15→20:30)
--- NOTE | 2023-07-09 09:02 | PM.PNGS ---
Progress Note: A&P Assessment and Plan (1) Cholelithiasis with choledocholithiasis: Code(s): K80.70 - Calculus of gallbladder and bile duct without cholecystitis without obstruction Status: Acute Assessment and Plan: exam benign, labs improving, ok to dc home from surgical standpoint on low fat diet and abx, f/u 1-2 wks to schedule interval janet Subjective Subjective Date/Time Seen: 07/09/23 09:02 Interval history: feels better today, [employer] low fat diet, minimal pain Review of Systems Review of Systems: All systems reviewed & are unremarkable except as noted in HPI and below Exam Const: General: cooperative, comfortable, no acute distress and tired appearing Resp: Auscultation: clear to auscultation bilaterally Cardio: Rate: regular rate Rhythm: regular rhythm GI: Inspection: normal to inspection and distended GI Palp: No abdominal tenderness and Yes Soft to palpation Objective Data Vital Signs Vital Signs: Vital Signs - 24 hr 07/08/23 14:00 07/08/23 15:24 07/08/23 15:28 Temperature 37.8 C H 38.3 C H 38.3 C H Pulse Rate 107 H Respiratory Rate 18 Blood Pressure 138/78 Pulse Oximetry 96 07/08/23 16:25 07/08/23 21:22 07/09/23 05:25 Temperature 37.6 C 36.8 C 36.9 C Pulse Rate 81 110 H Respiratory Rate 13 12 Blood Pressure 145/65 H 137/78 Pulse Oximetry 97 95 Intake/Output Intake/Output: Intake & Output 07/06/23 07/07/23 07/08/23 07/09/23 23:59 23:59 23:59 23:59 Intake Total 5965 976 1426 750 Output Total 2 800 2100 Balance 5965 974 622 -0020 Meds/Results Medications: Active Medications Generic Name Dose Route Start Last Admin Trade Name Freq PRN Reason Stop Dose Admin Acetaminophen 650 mg 07/05/23 14:51 07/09/23 08:15 Acetaminophen 325 Mg Tablet PO 650 mg Q6HR PRN Administration Mild Pain (1-3) or Fever Hydrocodone Bitart/Acetaminophen 1 tab 07/08/23 11:35 07/08/23 16:54 Hydrocodone/Acetaminophen (*Crx) 5-325 Mg Tablet PO 1 tab Q4H PRN Administration Pain Rated 4-6 Amoxicillin/Clavulanate Potassium 1 tablet 07/08/23 21:00 07/09/23 08:15 Amoxicillin/Clavulanate K 875-125 Mg Tab PO 07/11/23 23:59 1 tablet Q12HR SACHI Administration Morphine Sulfate 4 mg 07/02/23 09:25 07/06/23 00:20 Morphine Sulfate (*Crx) 4 Mg/Ml Inj IV PUSH 4 mg Q2H PRN Administration Pain Rated 7-10 Naloxone HCl 0.1 mg 07/02/23 09:25 Naloxone Hcl 0.4 Mg/Ml Vial IV PUSH Q2M PRN Opiate Reversal Ondansetron HCl 4 mg 07/01/23 16:48 07/06/23 14:03 Ondansetron Inj 4 Mg/2 Ml Vial IV PUSH 4 mg Q4H PRN Administration Nausea Pantoprazole Sodium 40 mg 07/05/23 21:00 07/09/23 08:15 Pantoprazole Sodium Iv 40 Mg Vial IV PUSH 40 mg Q12HR SACHI Administration Polyethylene Glycol 17 gm 07/03/23 09:00 07/09/23 08:15 Polyethylene Glycol 3350 17 Gm Powd.Pack PO 17 gm QAM SACHI Administration Senna/Docusate Sodium 2 tab 07/02/23 21:00 07/08/23 21:12 Senna/Docusate Sodium Tablet PO 2 tab HS SACHI Administration Radiology Results: ITS Impressions Endo Retro Cholangiopancreatogram 07/02/23 16:02 IMPRESSION: 1. Balloon sweeping of what appears to be a small amount of sludge or gallstones in the distal common bile duct. Please refer to the ERCP procedure note for additional details. Chest X-Ray 07/08/23 15:23 IMPRESSION: 1. Worsened moderate-sized left pleural effusion. 2. Stable airspace opacities in the mid and lower lung zones with a basilar predominance, consistent with atelectasis versus pneumonia. Labs Labs: Laboratory Results - last 24 hr 07/09/23 05:19 WBC 13.3 H RBC 2.72 L Hgb 8.0 L Hct 24.2 L MCV 89.0 MCH 29.4 MCHC 33.1 RDW 13.8 Plt Count 270 MPV 10.6 H Immature Gran % (Auto) 3.8 H Neut % (Auto) 71.6 Lymph % (Auto) 15.4 L [place] % (Auto) 8.0 Eos % (Auto) 0.8 Baso % (Auto) 0.4 Lymph # (Auto) 2.05 [place] # (Aut
--- NOTE | 2023-07-09 11:59 | PM.IMPN ---
Progress Note: A&P Assessment and Plan (1) Cholangitis: Code(s): K83.09 - Other cholangitis Status: Acute (2) Cholelithiasis with choledocholithiasis: Code(s): K80.70 - Calculus of gallbladder and bile duct without cholecystitis without obstruction Status: Acute (3) Acute biliary pancreatitis: Code(s): K85.10 - Biliary acute pancreatitis without necrosis or infection Status: Acute (4) Elevated liver enzymes: Code(s): R74.8 - Abnormal levels of other serum enzymes Status: Acute (5) Anemia: Code(s): D64.9 - Anemia, unspecified Status: Acute Plan 22-year-old female with no past medical history presents to the ED complaints of nausea/vomiting/abdominal pain for last 5 days.? Patient has no history of symptoms this severe before.? No family history abdominal pathologies.? Patient has not had gallbladder attacks in the past. I had elevated LFTs on admission with elevated lipase more than 40,000. Since admission these levels has improved. Worsening anemia with a course with FOBT positive. Hepatitis panel has been negative. Initial chest x-ray with no acute cardiopulmonary disease. Ultrasound abdomen with dilated common bile duct sludge and stones in the gallbladder and mild gallbladder wall thickening and free fluid in the right upper quadrant. Findings could reflect distal common bile duct obstruction and/or acute cholecystitis. Patient underwent ERCP on 07/02/2023. Subsequent plans for our laparoscopic cholecystectomy was held due to hypoxia. Chest x-ray on 07/05/2023 with bibasilar airspace opacities left greater than right consistent with atelectasis versus pneumonia. General surgery was consulted and plan for cholecystostomy tube placement. Ultrasound done on 07/07/2023 showed some residual wall thickening within the gallbladder likely related to acute cholecystitis but also due to improvement in the prior distention the gallbladder which measured be approximately 3.8 cm in maximal diameter currently 1.8 cm maximum diameter. There has also been significant decrease in amount of hypoechoic sludge in the dependent portion the gallbladder. This is likely due to resolution of prior obstruction of the common bile duct post ERCP on sleeping of likely obstructing stones from the common bile duct with subsequent significant improvement in the condition the patient including significant improvement in both the elevated liver enzymes and elevated white blood cell count. Percutaneous cholecystostomy tube placement was deferred. EGD performed for worsening anemia showed expected ulcer SP enterotomy site with hematin but no active bleeding. Treated with epi. General surgery planning to do cholecystostomy as an outpatient basis and has been started on oral diet which she is tolerating well. She is still feels short of breath and most likely has congestion from all the fluid resuscitation she received through her course. LFTs and lipase has normalized now. Chest x-ray showed worsened a moderate-sized left pleural effusion. Will continue diuresis for now if does not resolve may need thoracentesis to further evaluate. Acute pancreatitis associated left pleural effusion is a possibility as well. She also spiked a fever 07/08/2023. Remains on Augmentin will continue same. Repeat chest x-ray in a.m. two views along with cbc and CMP. Subjective Date/time seen: 07/09/23 11:59 Interval history: 22-year-old female with no past medical history presents to the ED complaints of nausea/vomiting/abdominal pain for last 5 days.? Patient has no history of symptoms this severe before.? No family history abdominal pathologies.? Patient has not had gallbladder attacks in the past. I had elevated LFTs on admission with elevated lipase more than 40,000. Since admission these levels has improved. Worsening anemia with a course with FOBT positive. Hepatitis panel has been negative. Initial chest x-ray with no a
[2023-07-09] MEDS: FUROSEMIDE INJ 40 MG/4 ML VIAL IV PUSH (12:29)
--- NOTE | 2023-07-09 13:52 | WPDGIPROGNO ---
Progress Note: A&P Assessment and Plan (1) Acute blood loss anemia: Code(s): D62 - Acute posthemorrhagic anemia Status: Acute Assessment and Plan: egd noted hematin at sphincterotomy site- no active bleeding but treated with epi h/h stable last several days continue with protonix (2) Cholelithiasis with choledocholithiasis: Code(s): K80.70 - Calculus of gallbladder and bile duct without cholecystitis without obstruction Status: Acute Assessment and Plan: treated successfully with ercp, normalization of bili and overall better abd us revealed improved of GB edema tolerating diet lap janet as outpatient once overall clinical status improves (3) Acute biliary pancreatitis: Code(s): K85.10 - Biliary acute pancreatitis without necrosis or infection Status: Acute Assessment and Plan: this has improved normal bili (4) Elevated liver enzymes: Code(s): R74.8 - Abnormal levels of other serum enzymes Status: Acute Assessment and Plan: normalization of liver enzymes (5) Cholangitis: Code(s): K83.09 - Other cholangitis Status: Acute Assessment and Plan: treated (6) Pleural effusion: Code(s): J90 - Pleural effusion, not elsewhere classified Status: Acute Assessment and Plan: treated with diuretics and feeling better Subjective Date/time seen: 07/09/23 13:52 Interval history: breathing better after diuretics, abdominal pain is significantly improved overall better Review of Systems Review of Systems: All systems reviewed & are unremarkable except as noted in HPI and below Exam Const: General: comfortable and no acute distress Orientation/consciousness: patient oriented x3 HENMT: Face/Nose/Sinus: Normal nares present Eyes: Sclera: sclerae normal Neck: Neck: supple Resp: Effort & Inspection: normal respiratory effort Auscultation: diminished lung sounds (left base) Cardio: Rhythm: regular rhythm GI: Inspection: non-distended GI Palp: Yes Soft to palpation, No Tenderness to palpation present (GI) (RUQ and epigastric area) and No Guarding due to palpation present (GI) Auscultation: normal bowel sounds Skin: General skin exam: pallor Neuro: Speech: normal speech Motor exam (neuro): 5/5 motor strength present throughout Extrem: General: no calf tenderness Right upper extremity: edema (bilateral 2+ diffuse nonpitting edema of upper extremities) Left upper extremity: edema Right lower extremity: no edema Left lower extremity: no edema Psych: Mental Status: mental status grossly normal Insight: Good insight present (Psych) Objective Data Vital Signs Vital Signs: Vital Signs - 24 hr 07/08/23 14:00 07/08/23 15:24 07/08/23 15:28 Temperature 100.0 F H 100.9 F H 100.9 F H Pulse Rate 107 H Respiratory Rate 18 Blood Pressure 138/78 Pulse Oximetry 96 Oxygen Delivery 07/08/23 16:25 07/08/23 21:22 07/09/23 05:25 Temperature 99.6 F 98.2 F 98.5 F Pulse Rate 81 110 H Respiratory Rate 13 12 Blood Pressure 145/65 H 137/78 Pulse Oximetry 97 95 Oxygen Delivery 07/09/23 08:15 Temperature Pulse Rate Respiratory Rate Blood Pressure Pulse Oximetry Oxygen Delivery Room Air Intake/Output Intake/Output: Intake & Output 07/06/23 07/07/23 07/08/23 07/09/23 23:59 23:59 23:59 23:59 Intake Total 5965 976 1426 750 Output Total 2 800 2400 Balance 5965 974 626 -1650 Meds/Results Medications: Active Medications Generic Name Dose Route Start Last Admin Trade Name Freq PRN Reason Stop Dose Admin Acetaminophen 650 mg 07/05/23 14:51 07/09/23 08:15 Acetaminophen 325 Mg Tablet PO 650 mg Q6HR PRN Administration Mild Pain (1-3) or Fever Hydrocodone Bitart/Acetaminophen 1 tab 07/08/23 11:35 07/08/23 16:54 Hydrocodone/Acetaminophen (*Crx) 5-325 Mg Tablet PO 1 tab Q4H PRN Administration Pain Rated 4-6 Amoxicillin/Clavulanate Chaz
[2023-07-09 14:00] VITALS: BP 130/69; PULSE 119; RESP 18; TEMP 37.7; O2SAT 98
[2023-07-09 20:26] VITALS: BP 141/84; PULSE 119; RESP 16; TEMP 36.5; O2SAT 97
[2023-07-09] MEDS: SENNA/DOCUSATE SODIUM TABLET 2 TAB PO (20:30)
[2023-07-10 05:12] VITALS: BP 142/73; PULSE 107; RESP 16; TEMP 36.3; O2SAT 97
[2023-07-10 06:24] LABS: Basophils Absolute Auto 0.1 K/mm3 (0.0-0.1); Basophils Percent Auto 0.4 % (0.2-1.2); Eosinophils Absolute Auto 0.1 K/mm3 (0-0.3); Eosinophils Percent Auto 0.9 % (0-4.4); Hematocrit 25.1 % (37.0-47.0); Hemoglobin 8.1 g/dL (12.0-15.0); Immature Granulocyte Absolute 0.34 K/mm3 (0.00-0.031); Immature Granulocyte Percent A 2.6 % (0-0.5); Lymphocytes Absolute Auto 2.01 K/mm3 (0.9-3.2); Lymphocytes Percent Auto 15.3 % (18.3-44.2); Mean Corpuscular HGB Conc 32.3 g/dl (32-36); Mean Corpuscular Hemoglobin 29.2 pg (26-34); Mean Corpuscular Volume 90.6 fl (80-100); Mean Platelet Volume 10.8 fl (7.4-10.4); Monocytes Absolute Auto 1.1 K/mm3 (0.1-0.6); Monocytes Percent Auto 8.1 % (2.6-8.5); Neutrophils Absolute Auto 9.6 K/mm3 (1.3-6.7); Neutrophils Percent Auto 72.7 % (45.5-73.1); Platelet Count Result 305 k/mm3 (150-375); Red Blood Count 2.77 M/mm3 (4.2-5.4); Red Cell Distribution Width 13.9 % (11.5-14.5); White Blood Count 13.2 K/mm3 (4.5-10.0)
[2023-07-10 06:38] LABS: Alanine Aminotransferase 28 U/L (6-35); Alkaline Phosphatase 71 U/L (38-126); Anion Gap 9 mmol/L (8-16); Aspartate Amino Transferase 29 U/L (14-36); Bilirubin,Total 0.6 mg/dL (0.2-1.3); Blood Urea Nitrogen 7 mg/dL (7-17); Calcium 8.2 mg/dL (8.4-10.2); Carbon Dioxide 22 mmol/L (22-30); Chloride 106 mmol/L (98-107); Estimated CRCL calculation 175 ml/min; Estimated Glomerular Filt Rate > 60; Glucose 95 mg/dL (65-110); Potassium 3.6 mmol/L (3.4-5.0); Sodium 137 mmol/L (137-145)
[2023-07-10] MEDS: AMOXICILLIN/CLAVULANATE K 875-125 MG TAB 1 TABLET PO ×2 (08:47→21:38)
[2023-07-10] MEDS: PANTOPRAZOLE SODIUM IV 40 MG VIAL IV PUSH ×2 (08:47→21:38)
[2023-07-10] MEDS: polyethylene glycoL 3350 17 GM POWD.PACK PO (08:47)
--- NOTE | 2023-07-10 09:45 | WPDGIPROGNO ---
Progress Note: A&P Assessment and Plan (1) Cholelithiasis with choledocholithiasis: Code(s): K80.70 - Calculus of gallbladder and bile duct without cholecystitis without obstruction Status: Acute Assessment and Plan: Patient now status post ERCP and removal of common bile duct Stone after sphincterotomy. small amount of post procedure bleeding has resolved. Patient appears to be recovering adequately. Anticipate cholecystectomy as an outpatient by surgical service was following patient. (2) Acute biliary pancreatitis: Code(s): K85.10 - Biliary acute pancreatitis without necrosis or infection Status: Acute Assessment and Plan: Pancreatitis resolved. Patient can advance to low-fat diet. (3) Pleural effusion: Code(s): J90 - Pleural effusion, not elsewhere classified Status: Acute Assessment and Plan: Pleural effusion noted. New treatment as outlined. Supportive care for now. Patient clinically improving. Subjective Date/time seen: 07/10/23 09:45 Interval history: Patient seen covering for Dr. Freeman today. Patient alert comfortable this morning. Sitting on the edge of Bed. Breathing easily. Tolerating diet. Denies abdominal pain. Review of Systems Review of Systems: Review of systems noncontributory. Exam Narrative: Physical exam reveals patient be alert afebrile and anicteric. HEENT exam unremarkable. Lungs reveal few rhonchi. Heart without murmur. Abdomen bowel sounds present soft nontender. Objective Data Vital Signs Vital Signs: Vital Signs - 24 hr 07/09/23 14:00 07/09/23 20:26 07/10/23 05:12 Temperature 99.8 F H 97.7 F 97.4 F L Pulse Rate 119 H 119 H 107 H Respiratory Rate 18 16 16 Blood Pressure 130/69 141/84 H 142/73 H Pulse Oximetry 98 97 97 Oxygen Delivery 07/10/23 08:45 Temperature Pulse Rate Respiratory Rate Blood Pressure Pulse Oximetry Oxygen Delivery Room Air Intake/Output Intake/Output: Intake & Output 07/07/23 07/08/23 07/09/23 07/10/23 23:59 23:59 23:59 23:59 Intake Total 976 1426 1110 Output Total 2 812 9283 1600 Balance 828 759 -0607 -0459 Meds/Results Medications: Active Medications Generic Name Dose Route Start Last Admin Trade Name Freq PRN Reason Stop Dose Admin Acetaminophen 650 mg 07/05/23 14:51 07/09/23 20:30 Acetaminophen 325 Mg Tablet PO 650 mg Q6HR PRN Administration Mild Pain (1-3) or Fever Hydrocodone Bitart/Acetaminophen 1 tab 07/08/23 11:35 07/08/23 16:54 Hydrocodone/Acetaminophen (*Crx) 5-325 Mg Tablet PO 1 tab Q4H PRN Administration Pain Rated 4-6 Amoxicillin/Clavulanate Potassium 1 tablet 07/08/23 21:00 07/10/23 08:47 Amoxicillin/Clavulanate K 875-125 Mg Tab PO 07/11/23 23:59 1 tablet Q12HR SACHI Administration Morphine Sulfate 4 mg 07/02/23 09:25 07/06/23 00:20 Morphine Sulfate (*Crx) 4 Mg/Ml Inj IV PUSH 4 mg Q2H PRN Administration Pain Rated 7-10 Naloxone HCl 0.1 mg 07/02/23 09:25 Naloxone Hcl 0.4 Mg/Ml Vial IV PUSH Q2M PRN Opiate Reversal Ondansetron HCl 4 mg 07/01/23 16:48 07/06/23 14:03 Ondansetron Inj 4 Mg/2 Ml Vial IV PUSH 4 mg Q4H PRN Administration Nausea Pantoprazole Sodium 40 mg 07/05/23 21:00 07/10/23 08:47 Pantoprazole Sodium Iv 40 Mg Vial IV PUSH 40 mg Q12HR SACHI Administration Polyethylene Glycol 17 gm 07/03/23 09:00 07/10/23 08:47 Polyethylene Glycol 3350 17 Gm Powd.Pack PO 17 gm QAM SACHI Administration Senna/Docusate Sodium 2 tab 07/02/23 21:00 07/09/23 20:30 Senna/Docusate Sodium Tablet PO 2 tab HS SACHI Administration Radiology Results: ITS Impressions Endo Retro Cholangiopancreatogram 07/02/23 16:02 IMPRESSION: 1. Balloon sweeping of what appears to be a small amount of sludge or gallstones in the distal common bile duct. Please refer to the ERCP procedure note for additional details.
--- NOTE | 2023-07-10 13:31 | PM.IMPN ---
Progress Note: A&P Assessment and Plan (1) Cholangitis: Code(s): K83.09 - Other cholangitis Status: Acute (2) Cholelithiasis with choledocholithiasis: Code(s): K80.70 - Calculus of gallbladder and bile duct without cholecystitis without obstruction Status: Acute (3) Acute biliary pancreatitis: Code(s): K85.10 - Biliary acute pancreatitis without necrosis or infection Status: Acute (4) Elevated liver enzymes: Code(s): R74.8 - Abnormal levels of other serum enzymes Status: Acute (5) Anemia: Code(s): D64.9 - Anemia, unspecified Status: Acute Plan 22-year-old female with no past medical history presents to the ED complaints of nausea/vomiting/abdominal pain for last 5 days.? Patient has no history of symptoms this severe before.? No family history abdominal pathologies.? Patient has not had gallbladder attacks in the past. I had elevated LFTs on admission with elevated lipase more than 40,000. Since admission these levels has improved. Worsening anemia with a course with FOBT positive. Hepatitis panel has been negative. Initial chest x-ray with no acute cardiopulmonary disease. Ultrasound abdomen with dilated common bile duct sludge and stones in the gallbladder and mild gallbladder wall thickening and free fluid in the right upper quadrant. Findings could reflect distal common bile duct obstruction and/or acute cholecystitis. Patient underwent ERCP on 07/02/2023. Subsequent plans for our laparoscopic cholecystectomy was held due to hypoxia. Chest x-ray on 07/05/2023 with bibasilar airspace opacities left greater than right consistent with atelectasis versus pneumonia. General surgery was consulted and plan for cholecystostomy tube placement. Ultrasound done on 07/07/2023 showed some residual wall thickening within the gallbladder likely related to acute cholecystitis but also due to improvement in the prior distention the gallbladder which measured be approximately 3.8 cm in maximal diameter currently 1.8 cm maximum diameter. There has also been significant decrease in amount of hypoechoic sludge in the dependent portion the gallbladder. This is likely due to resolution of prior obstruction of the common bile duct post ERCP on sleeping of likely obstructing stones from the common bile duct with subsequent significant improvement in the condition the patient including significant improvement in both the elevated liver enzymes and elevated white blood cell count. Percutaneous cholecystostomy tube placement was deferred. EGD performed for worsening anemia showed expected ulcer SP enterotomy site with hematin but no active bleeding. Treated with epi. General surgery planning to do cholecystostomy as an outpatient basis and has been started on oral diet which she is tolerating well. She is still feels short of breath and most likely has congestion from all the fluid resuscitation she received through her course. LFTs and lipase has normalized now. Chest x-ray showed worsened a moderate-sized left pleural effusion. Will continue diuresis for now if does not resolve may need thoracentesis to further evaluate. Acute pancreatitis associated left pleural effusion is a possibility as well. She also spiked a fever 07/08/2023. Remains on Augmentin will continue same. Repeat chest x-ray with persistent left consolidation/effusion. Will get a diagnostic CT chest to further evaluate if thoracentesis will be beneficial. Continue antibiotics. Mildly tachycardia still persist. Subjective Date/time seen: 07/10/23 13:31 Interval history: Intermittent fever persist. Feels better but still tachycardic. Minimal cough. Denies any pain in chest still has some discomfort in right upper quadrant Review of Systems Review of Systems: All systems reviewed & are unremarkable except as noted in HPI and below Exam Narrative: - GENERAL: Pleasant woman in no acute distress. Well-nourished. - LUNG
[2023-07-10 14:00] VITALS: BP 135/80; PULSE 122; RESP 26; TEMP 37.4; O2SAT 96
[2023-07-10] MEDS: SENNA/DOCUSATE SODIUM TABLET 2 TAB PO (21:38)
[2023-07-10 22:00] VITALS: BP 143/81; PULSE 120; RESP 20; TEMP 36.8; O2SAT 97
[2023-07-10 22:50] VITALS: O2SAT 97
[2023-07-11 05:26] LABS: Basophils Absolute Auto 0.1 K/mm3 (0.0-0.1); Basophils Percent Auto 0.5 % (0.2-1.2); Eosinophils Absolute Auto 0.2 K/mm3 (0-0.3); Eosinophils Percent Auto 1.1 % (0-4.4); Hematocrit 25.2 % (37.0-47.0); Hemoglobin 8.3 g/dL (12.0-15.0); Immature Granulocyte Absolute 0.26 K/mm3 (0.00-0.031); Lymphocytes Absolute Auto 2.33 K/mm3 (0.9-3.2); Lymphocytes Percent Auto 17.5 % (18.3-44.2); Mean Corpuscular HGB Conc 32.9 g/dl (32-36); Mean Corpuscular Hemoglobin 29.5 pg (26-34); Mean Corpuscular Volume 89.7 fl (80-100); Mean Platelet Volume 11.1 fl (7.4-10.4); Monocytes Absolute Auto 1.1 K/mm3 (0.1-0.6); Monocytes Percent Auto 8.4 % (2.6-8.5); Neutrophils Absolute Auto 9.4 K/mm3 (1.3-6.7); Neutrophils Percent Auto 70.5 % (45.5-73.1); Platelet Count Result 340 k/mm3 (150-375); Red Blood Count 2.81 M/mm3 (4.2-5.4); Red Cell Distribution Width 13.7 % (11.5-14.5); White Blood Count 13.3 K/mm3 (4.5-10.0)
[2023-07-11 05:36] LABS: Alanine Aminotransferase 25 U/L (6-35); Albumin Level 3.2 g/dL (3.5-5.1); Alkaline Phosphatase 63 U/L (38-126); Anion Gap 5 mmol/L (8-16); Aspartate Amino Transferase 27 U/L (14-36); Bilirubin,Total 0.5 mg/dL (0.2-1.3); Blood Urea Nitrogen 7 mg/dL (7-17); Calcium 8.3 mg/dL (8.4-10.2); Carbon Dioxide 23 mmol/L (22-30); Chloride 107 mmol/L (98-107); Estimated CRCL calculation 175 ml/min; Estimated Glomerular Filt Rate > 60; Glucose 110 mg/dL (65-110); Magnesium 2.3 mg/dL (1.6-2.3); Potassium 3.9 mmol/L (3.4-5.0); Sodium 135 mmol/L (137-145)
[2023-07-11 06:00] VITALS: BP 125/65; PULSE 118; RESP 20; TEMP 37.1; O2SAT 96
[2023-07-11 08:08] LABS: Lipase 283 U/L (23-300)
[2023-07-11] MEDS: AMOXICILLIN/CLAVULANATE K 875-125 MG TAB 1 TABLET PO (08:20)
[2023-07-11] MEDS: PANTOPRAZOLE SODIUM IV 40 MG VIAL IV PUSH (08:20)
[2023-07-11] MEDS: polyethylene glycoL 3350 17 GM POWD.PACK PO (08:20)
--- NOTE | 2023-07-11 10:03 | WPDGIPROGNO ---
Progress Note: A&P Assessment and Plan (1) Cholelithiasis with choledocholithiasis: Code(s): K80.70 - Calculus of gallbladder and bile duct without cholecystitis without obstruction Status: Acute Assessment and Plan: Patient is status post ERCP, sphincterotomy and stone extraction. She had some brief bleeding postprocedure from the sphincterotomy this is now stopped. Hemoglobin currently stable. Her abdominal pain and obstruction appears relief. Currently on antibiotics for cholangitis. She will need surgical cholecystectomy which I understand is arranged as an outpatient. Disposition per surgery at this point. (2) Anemia: Code(s): D64.9 - Anemia, unspecified Status: Acute Assessment and Plan: Anemia stable. No further bleeding noted. Bleeding now resolved. (3) Pleural effusion: Code(s): J90 - Pleural effusion, not elsewhere classified Status: Acute Assessment and Plan: Patient had pleural effusion post procedure. Currently improving. Continued follow-up by primary care service. Hopefully discharge soon with this is felt stable. Subjective Date/time seen: 07/11/23 10:03 Interval history: Patient alert comfortable today. Sitting on edge of bed. No supplemental oxygen in. States she is no longer short of breath. Tolerating diet with no pain. No bleeding reported. Review of Systems Review of Systems: Review of systems noncontributory. Exam Narrative: Physical exam reveals patient be alert. Vital signs stable. HEENT exam is unremarkable. Patient anicteric. Lungs are clear. Heart without murmur. Abdomen soft nontender with no organomegaly. Objective Data Vital Signs Vital Signs: Vital Signs - 24 hr 07/10/23 14:00 07/10/23 22:00 07/10/23 22:50 Temperature 99.4 F 98.2 F Pulse Rate 122 H 120 H Respiratory Rate 26 H 20 Blood Pressure 135/80 143/81 H Pulse Oximetry 96 97 97 Oxygen Delivery Room Air 07/11/23 06:00 07/11/23 08:20 Temperature 98.7 F Pulse Rate 118 H Respiratory Rate 20 Blood Pressure 125/65 Pulse Oximetry 96 Oxygen Delivery Room Air Intake/Output Intake/Output: Intake & Output 07/08/23 07/09/23 07/10/23 07/11/23 23:59 23:59 23:59 23:59 Intake Total 1426 1110 1570 520 Output Total 800 8615 2950 Balance 864 -2726 -0788 520 Meds/Results Medications: Active Medications Generic Name Dose Route Start Last Admin Trade Name Freq PRN Reason Stop Dose Admin Acetaminophen 650 mg 07/05/23 14:51 07/09/23 20:30 Acetaminophen 325 Mg Tablet PO 650 mg Q6HR PRN Administration Mild Pain (1-3) or Fever Hydrocodone Bitart/Acetaminophen 1 tab 07/08/23 11:35 07/08/23 16:54 Hydrocodone/Acetaminophen (*Crx) 5-325 Mg Tablet PO 1 tab Q4H PRN Administration Pain Rated 4-6 Amoxicillin/Clavulanate Potassium 1 tablet 07/08/23 21:00 07/11/23 08:20 Amoxicillin/Clavulanate K 875-125 Mg Tab PO 07/11/23 23:59 1 tablet Q12HR SACHI Administration Guaifenesin/Dextromethorphan 10 ml 07/10/23 13:34 Guaifenesin/Dextromethorphan 10 Ml Udc PO Q4H PRN Cough Miscellaneous Information 1 each 07/11/23 09:25 07/11/23 09:54 Morphine Needs To Be Renewed Or It Will Automatically Discontinue. XX 08/10/23 09:24 Not Given CLARIFY SACHI Morphine Sulfate 4 mg 07/02/23 09:25 07/06/23 00:20 Morphine Sulfate (*Crx) 4 Mg/Ml Inj IV PUSH 4 mg Q2H PRN Administration Pain Rated 7-10 Naloxone HCl 0.1 mg 07/02/23 09:25 Naloxone Hcl 0.4 Mg/Ml Vial IV PUSH Q2M PRN Opiate Reversal Ondansetron HCl 4 mg 07/01/23 16:48 07/06/23 14:03 Ondansetron Inj 4 Mg/2 Ml Vial IV PUSH 4 mg Q4H PRN Administration Nausea Pantoprazole Sodium 40 mg 07/05/23 21:00 07/11/23 08:20 Pantoprazole Sodium Iv 40 Mg Vial IV PUSH 40 mg Q12HR SACHI Administration Polyethylene Glycol 17 gm 07/03/23 09:00 07/11/23 08:20 Polyethylene Glycol
[2023-07-11] MEDS: ACETAMINOPHEN 325 MG TABLET 650 MG PO (11:37)
--- NOTE | 2023-07-11 12:19 | PM.PNGS ---
Progress Note: A&P Assessment and Plan (1) Cholangitis: Code(s): K83.09 - Other cholangitis Status: Acute Assessment and Plan: White blood cell count is improving. No evidence of ongoing infection. We need to complete a course of oral antibiotics at home. (2) Cholelithiasis with choledocholithiasis: Code(s): K80.70 - Calculus of gallbladder and bile duct without cholecystitis without obstruction Status: Acute Assessment and Plan: Choledocholithiasis resolved after ERCP removal of stones. She did have post seizure bleeding from the sphincterotomy but the bleeding has stopped. No need for blood transfusion but iron supplementation recommended. Patient can be discharged home today with follow-up Dr. Guevara in the office in the next 1 to 2 weeks for to discuss interval laparoscopic cholecystectomy. (3) Acute blood loss anemia: Code(s): D62 - Acute posthemorrhagic anemia Status: Acute Assessment and Plan: Informed the patient she may feels tired and run down given her anemia but she does not need a trip blood transfusion. Will get have her eat lean red meat and stay on a iron supplement and stool softeners if she becomes constipated. Subjective Subjective Date/Time Seen: 07/11/23 12:19 Interval history: Patient feels good today. No complaints. Tolerated low-fat diet today. No problems. Hemoglobin stable around 8.1 to 8.3 over the past 48hours. No further evidence of bleeding. Exam GI: Other: Abdomen is soft not distended. Nontender and benign. Objective Data Vital Signs Vital Signs: Vital Signs - 24 hr 07/10/23 14:00 07/10/23 22:00 07/10/23 22:50 Temperature 37.4 C 36.8 C Pulse Rate 122 H 120 H Respiratory Rate 26 H 20 Blood Pressure 135/80 143/81 H Pulse Oximetry 96 97 97 Oxygen Delivery Room Air 07/11/23 06:00 07/11/23 08:20 Temperature 37.1 C Pulse Rate 118 H Respiratory Rate 20 Blood Pressure 125/65 Pulse Oximetry 96 Oxygen Delivery Room Air Intake/Output Intake/Output: Intake & Output 07/08/23 07/09/23 07/10/23 07/11/23 23:59 23:59 23:59 23:59 Intake Total 1426 1110 1570 520 Output Total 800 4715 2950 Balance 626 -8455 -1380 520 Meds/Results Medications: Active Medications Generic Name Dose Route Start Last Admin Trade Name Freq PRN Reason Stop Dose Admin Acetaminophen 650 mg 07/05/23 14:51 07/11/23 11:37 Acetaminophen 325 Mg Tablet PO 650 mg Q6HR PRN Administration Mild Pain (1-3) or Fever Hydrocodone Bitart/Acetaminophen 1 tab 07/08/23 11:35 07/08/23 16:54 Hydrocodone/Acetaminophen (*Crx) 5-325 Mg Tablet PO 1 tab Q4H PRN Administration Pain Rated 4-6 Amoxicillin/Clavulanate Potassium 1 tablet 07/08/23 21:00 07/11/23 08:20 Amoxicillin/Clavulanate K 875-125 Mg Tab PO 07/11/23 23:59 1 tablet Q12HR SACHI Administration Guaifenesin/Dextromethorphan 10 ml 07/10/23 13:34 Guaifenesin/Dextromethorphan 10 Ml Udc PO Q4H PRN Cough Miscellaneous Information 1 each 07/11/23 09:25 07/11/23 09:54 Morphine Needs To Be Renewed Or It Will Automatically Discontinue. XX 08/10/23 09:24 Not Given CLARIFY SACHI Morphine Sulfate 4 mg 07/02/23 09:25 07/06/23 00:20 Morphine Sulfate (*Crx) 4 Mg/Ml Inj IV PUSH 4 mg Q2H PRN Administration Pain Rated 7-10 Naloxone HCl 0.1 mg 07/02/23 09:25 Naloxone Hcl 0.4 Mg/Ml Vial IV PUSH Q2M PRN Opiate Reversal Ondansetron HCl 4 mg 07/01/23 16:48 07/06/23 14:03 Ondansetron Inj 4 Mg/2 Ml Vial IV PUSH 4 mg Q4H PRN Administration Nausea Pantoprazole Sodium 40 mg 07/05/23 21:00 07/11/23 08:20 Pantoprazole Sodium Iv 40 Mg Vial IV PUSH 40 mg Q12HR SACHI Administration Polyethylene Glycol 17 gm 07/03/23 09:00 07/11/23 08:20 Polyethylene Glycol 3350 17 Gm Powd.Pack PO 17 gm QAM SACHI Administration Senna/Docusate Sodium 2 tab 07/02/23 21:00 07/10/23 21:38 Se
--- NOTE | 2023-07-11 12:43 | PM.DS ---
DS: Admitting Diagnosis Discharge Date 07/11/2023 Admitting Diagnosis Abdominal pain DS: Discharge Diagnosis Discharge Diagnosis (1) Cholangitis: Code(s): K83.09 - Other cholangitis Status: Acute (2) Cholelithiasis with choledocholithiasis: Code(s): K80.70 - Calculus of gallbladder and bile duct without cholecystitis without obstruction Status: Acute (3) Acute biliary pancreatitis: Code(s): K85.10 - Biliary acute pancreatitis without necrosis or infection Status: Acute (4) Elevated liver enzymes: Code(s): R74.8 - Abnormal levels of other serum enzymes Status: Acute (5) Anemia: Code(s): D64.9 - Anemia, unspecified Status: Acute DS: Summary Hospital Course Hospital Course: 22-year-old female with no past medical history presents to the ED complaints of nausea/vomiting/abdominal pain for last 5 days.? Patient has no history of symptoms this severe before.? No family history abdominal pathologies.? Patient has not had gallbladder attacks in the past.? I had elevated LFTs on admission with elevated lipase more than 40,000. Since admission these levels has improved.? Worsening anemia with a course with FOBT positive.? Hepatitis panel has been negative.? Initial chest x-ray with no acute cardiopulmonary disease.? Ultrasound abdomen with dilated common bile duct sludge and stones in the gallbladder and mild gallbladder wall thickening and free fluid in the right upper quadrant.? Findings could reflect distal common bile duct obstruction and/or acute cholecystitis.? Patient underwent ERCP on 07/02/2023.? Subsequent plans for our laparoscopic cholecystectomy was held due to hypoxia.? Chest x-ray on 07/05/2023 with bibasilar airspace opacities left greater than right consistent with atelectasis versus pneumonia.? General surgery was consulted and plan for cholecystostomy tube placement.? Ultrasound done on 07/07/2023 showed some residual wall thickening within the gallbladder likely related to acute cholecystitis but also due to improvement in the prior distention the gallbladder which measured be approximately 3.8 cm in maximal diameter currently 1.8 cm maximum diameter.? There has also been significant decrease in amount of hypoechoic sludge in the dependent portion the gallbladder.? This is likely due to resolution of prior obstruction of the common bile duct post ERCP on sleeping of likely obstructing stones from the common bile duct with subsequent significant improvement in the condition the patient including significant improvement in both the elevated liver enzymes and elevated white blood cell count.? Percutaneous cholecystostomy tube placement was deferred.? EGD performed for worsening anemia showed expected ulcer SP enterotomy site with hematin but no active bleeding.? Treated with epi.? General surgery planning to do cholecystostomy as an outpatient basis and has been started on oral diet which she is tolerating well.? She is still feels short of breath and most likely has congestion from all the fluid resuscitation she received through her course.? LFTs and lipase has normalized now.? Chest x-ray showed worsened a moderate-sized left pleural effusion.? Started on intermittent diuresis. Repeat chest x-ray with persistent left-sided pleural effusion/consideration. CT chest performed which revealed left lower lobe atelectasis versus consolidation along with mild pleural effusion. She will continue on oral antibiotics. She is asymptomatic with no abdominal pain cough or shortness of breath. She remained mildly tachycardic but remains stable. She will be discharged home to follow-up with PCP and also General surgery for interval cholecystectomy. She will remain on low-fat diet upon discharge. Time Spent with Patient Time attestation: Total time spent providing and/or coordinating discharge services: 35 minutes Exam Narrative: - GENERAL: Pleasant woman in no acute distress. Well-nouris
== END 2023-07-11 13:30 | disposition home or self-care (01) | DRG 439 ==
LOC: ANHED 16:53 → ANH3MEDSUR 18:47 → ANHIMU 07-02 13:15 → ANH3MEDSUR 07-03 13:56
PROVIDERS: Family Medicine; Hospitalist; Internal Medicine; Internal Medicine Gastroenterology; Nurse Practitioner Family; Student in an Organized Health Care Education/Training Program; Surgery; Admitting Provider Hospitalist; Emergency Provider Student in an Organized Health Care Education/Training Program; Visit Provider Internal Medicine
PROC: 0FC98ZZ Extirpation of Matter from Common Bile Duct, Via Natural or Artificial Opening Endoscopic (ICD-10-PCS; CPT 43260; principal; 2023-07-02 11:30)
PROC: 0FT44ZZ Resection of Gallbladder, Percutaneous Endoscopic Approach (ICD-10-PCS; CPT 47562; principal; 2023-07-05 09:30)
PROC: 0DJ08ZZ Inspection of Upper Intestinal Tract, Via Natural or Artificial Opening Endoscopic (ICD-10-PCS; CPT 43235; principal; 2023-07-06 13:00)
DX: K85.10 Biliary acute pancreatitis without necrosis or infection (principal); D62 Acute posthemorrhagic anemia; K80.62 Calculus of gallbladder and bile duct with acute cholecystitis without obstruction; K91.840 Postprocedural hemorrhage of a digestive system organ or structure following a digestive system procedure; K83.09 Other cholangitis; R65.10 Systemic inflammatory response syndrome (SIRS) of non-infectious origin without acute organ dysfunction; E87.6 Hypokalemia; E86.0 Dehydration; E87.70 Fluid overload, unspecified; R09.02 Hypoxemia; Y83.8 Other surgical procedures as the cause of abnormal reaction of the patient, or of later complication, without mention of misadventure at the time of the procedure; Z20.822 Contact with and (suspected) exposure to COVID-19
CPT/HCPCS: 36415; 71045; 71046; 71250; 74329; 76705; 80048; 80053; 80074; 80307; 81001; 81025; 82274; 83605; 83690; 83735; 84484; 85014; 85018; 85025; 85027; 85610; 85730; 87040; 87636; 93005; 96374; 96375; 99285; A9270; C9113; J0171; J0330; J0696; J1100; J1170; J1200; J1741; J1836; J1940; J2001; J2270; J2405; J2704; J3010; J7030; J7120; Q9966